=== PATIENT | female | born 1955 | race Caucasian/White ===

== ENCOUNTER 2023-06-21 12:39 | Outpatient (REF) | payer OTHER, MEDICARE, SELFPAY ==
--- NOTE | ~2023-06-21 | XR_ITS ---
EXAMINATION: XR KNEE, LEFT CLINICAL INFORMATION: Left knee pain COMPARISON: None available. TECHNIQUE: Three views of the left knee. FINDINGS: Mineralization is normal. There is no fracture or dislocation. There is mild joint space narrowing in the medial compartment with subchondral sclerosis and irregularity of the tibial articular surface. The other joint spaces are intact. No soft tissue calcifications are seen. There is evidence of a small joint effusion. XR/XR knee LT 3V IMPRESSION: Mild joint space narrowing and degenerative change in the medial compartment. Small joint effusion.
== END 2023-06-21 12:40 | disposition home or self-care (01) ==
LOC: HO.HOSX 12:39
PROVIDERS: PCP Internal Medicine; Visit Provider Orthopaedic Surgery
DX: M17.12 Unilateral primary osteoarthritis, left knee (principal)
CPT/HCPCS: 73562

== ENCOUNTER 2023-06-21 12:39 | Outpatient (AMB) | payer OTHER, MEDICARE, SELFPAY ==
--- NOTE | 2023-06-21 12:48 | A.OFFVIS_ITS ---
Intake Intake Visit Reasons: discuss gel injection LT knee Intake Note: Filomena is a 68 year old female who presents today as new patient for a evaluation for her left knee pain. The patient describes her left knee pain as sharp in nature. Her pain has gotten worse over the last few years in spite of continued non operative treatments. She has had multiple cortisone injections. The most recent cortisone injection gave her no relief. She has not had a viscosupplementation injection. She has tried Tylenol and anti-inflammatory medicines which gave her minimal relief. She has also done physical therapy for 12 weeks over the last 6 months which aggravated her pain. The patient wishes to hold off on surgery for as long as possible. Allergies No Known Allergies Allergy (Verified 06/21/23 13:00) Medication List - Last Reconciled 06/21/23 by Glenn Gaines MD metformin ER 500 mg PO BID naproxen 500 mg PO BID omeprazole 20 mg PO DAILY Physical Exam Const Other: Well-nourished well-developed very friendly female awake alert and oriented x3 in no acute distress Extrem Other: Bilateral lower extremity examination shows good capillary refill, no skin lesi ons noted, normal sensation light touch Left knee examination shows a minimal effusion, palpable crepitus with range of motion, pain with range of motion, range of motion from -3 degrees to 115 degree s, no instability Results Reviewed Results Reviewed: X-rays of the patient's left knee show moderate joint space narrowing most significant in the medial compartment, subchondral sclerosis, no acute bony abnormalities Assessment & Plan Assessment & Plan (1) Arthritis of left knee: Code(s): M17.12 - Unilateral primary osteoarthritis, left knee Plan Mrs. Fernández presents with left knee pain due to degenerative joint disease. I had a lengthy discussion with the patient regarding the treatment options. She wishes to hold off on surgery for as long as possible. I agree with this plan. She has not gotten good relief from her recent cortisone injections. Thus, I will see whether not her insurance company will cover a viscosupplementation injection. I will see her back once the injection is available. If she fails continued non operative treatments we will further discuss the risks and benefits of surgical intervention. Feel free to call me at any time should questions regarding her orthopedic management arise. I spent 22 minutes in reviewing the patient's records and imaging studies, seeing the patient and documenting in the medical record. Orders: Orders XR knee LT 3V Today M25.562 - Pain in left knee Coding Level of Care Code Est Pt Level 2 (64385) Diagnoses Arthritis of left knee M17.12
== END 2023-06-21 13:38 | disposition home or self-care (01) ==
PROVIDERS: PCP Internal Medicine; Visit Provider Orthopaedic Surgery
DX: M17.12 Unilateral primary osteoarthritis, left knee (principal)
CPT/HCPCS: 99212

== ENCOUNTER 2023-07-05 08:06 | Outpatient (AMB) | payer OTHER, MEDICARE, SELFPAY ==
--- NOTE | 2023-07-05 08:13 | MHC.OFFVIS ---
Intake Intake Visit Reasons: OV - Left knee Euflexxa Gel Injection #1 Intake Note: Filomena is a 68 year old female who presents today with complaints of progressively worsening left knee pain and swelling. She describes her pain as sharp and severe in nature. She has had cortisone injections in the past which gave her minimal relief. She has also done physical therapy which aggravated her pain. She has tried Tylenol and anti-inflammatory medicines which gave her minimal relief. She would like to hold off on left total knee replacement surgery for as long as possible. Allergies No Known Allergies Allergy (Verified 07/05/23 08:13) Medication List - Last Reconciled 07/05/23 by Glenn Gaines MD metformin ER 500 mg PO BID naproxen 500 mg PO BID omeprazole 20 mg PO DAILY Physical Exam Const Other: Well-nourished well-developed very friendly female awake alert and oriented x3 in no acute distress Extrem Other: Bilateral lower extremity examination shows good capillary refill, no skin lesions noted, normal sensation light touch Left knee examination shows a moderate effusion, palpable crepitus with range of motion, pain with range of motion, range of motion from -3 degrees to 115 degrees, no instability Office Procedures Joint Injection/Drain Joint Injection/Drain Primary Site: left knee Prep: site was prepped using aseptic technique Injected: 20 mg of (Euflexxa) and 1% plain lidocaine Procedure: The patient tolerated the procedure well Coding 67502 - Large joint Procedure code (CPT) selection complete Results Reviewed Results Reviewed: 07/05/23 08:15 Hyaluronate Sodium [Euflexxa] 20 mg INTRAARTIC .STK-MED ONE 07/05/23 08:34 Lidocaine HCl 2 % MPF [Xylocaine 2 % MPF] 5 ml .ROUTE .STK-MED ONE X-rays of the patient's left knee show joint space narrowing, subchondral sclerosis, no acute bony abnormalities Assessment & Plan Assessment & Plan (1) Arthritis of left knee: Code(s): M17.12 - Unilateral primary osteoarthritis, left knee Plan: Ms. Fernández presents with progressively worsening left knee pain and swelling due to degenerative joint disease. I had a lengthy discussion with the patient regarding the treatment options. She wishes to hold off on left total knee replacement surgery for as long as possible. I agree with this plan. She has not gotten good relief from cortisone injections in the past. Thus, the risks and benefits of a left knee viscosupplementation injection series were discussed at length with the patient. The patient wished to proceed. She tolerated the 1st Euflexxa injection well. Prior to the injection 5 cc of clear fluid were aspirated from the patient's knee. She will continue with her activity modifications. She will follow-up as instructed next week for 2nd injection. If she fails continued non operative treatments we will further discuss the risks and benefits of surgical intervention. Feel free to call me at any time should questions regarding her orthopedic management arise. I spent 22 minutes in reviewing the patient's records and imaging studies, seeing the patient and documenting in the medical record. Orders: Orders AMB Joint Injection/Aspiration Today M17.12 - Unilateral primary osteoarthritis, left knee Coding Level of Care Code Est Pt Level 2 (79446) Diagnoses Arthritis of left knee M17.12 CPT Codes Coding - 18658 Large joint: 70934 - Large joint ([id number])
== END 2023-07-05 08:49 | disposition home or self-care (01) ==
PROVIDERS: PCP Internal Medicine; Visit Provider Orthopaedic Surgery
DX: M17.12 Unilateral primary osteoarthritis, left knee (principal)
CPT/HCPCS: 20610; 99213

== ENCOUNTER → 2023-07-05 08:06 | Outpatient (BNVA) | payer OTHER, MEDICARE, SELFPAY | PROVIDERS: PCP Internal Medicine; Visit Provider Orthopaedic Surgery | DX: M17.12 Unilateral primary osteoarthritis, left knee (principal) | CPT/HCPCS: 20610; J7323 ==

== ENCOUNTER 2023-07-12 10:41 | Outpatient (AMB) | payer OTHER, SELFPAY ==
--- NOTE | 2023-07-12 10:47 | MHC.OFFVIS ---
Intake Intake Visit Reasons: OV - Left knee Euflexxa Gel Injection #2 Intake Note: Filomena is a 68 year old female who presents today for a Left Knee Euflexxa Injection #2. She states that she got mild relief from her 1st injection. She denies any fevers or chills. She has taken Naprosyn which gives her minimal relief. Allergies No Known Allergies Allergy (Verified 07/12/23 10:48) Medication List - Last Reconciled 07/12/23 by Gelnn Gaines MD celecoxib (Celebrex) 200 mg PO DAILY PRN metformin ER 500 mg PO BID naproxen 500 mg PO BID omeprazole 20 mg PO DAILY Physical Exam Extrem Other: Left knee examination shows a mild effusion, palpable crepitus with range of motion, pain with range of motion, no instability Results Reviewed Results Reviewed: 07/12/23 10:41 Lidocaine HCl 2 % MPF [Xylocaine 2 % MPF] 5 ml .ROUTE .STK-MED ONE 07/12/23 10:42 Hyaluronate Sodium [Euflexxa] 20 mg INTRAARTIC .STK-MED ONE X-rays of the patient's left knee show joint space narrowing, subchondral sclerosis, no acute bony abnormalities Assessment & Plan Assessment & Plan (1) Arthritis of left knee: Code(s): M17.12 - Unilateral primary osteoarthritis, left knee Plan Ms. Fernández presents with left knee pain due to degenerative joint disease. The risks and benefits of a 2nd Euflexxa injection were discussed at length with the patient. The patient wished to proceed. Patient tolerated the injection well. Prior to the Euflexxa injection I did aspirate 5 cc of clear fluid from her left knee. I also gave her a prescription for Celebrex which she can take instead of the Naprosyn. I will see her back next week as scheduled. Feel free to call me at any time should questions regarding her orthopedic management arise. I spent 22 minutes in reviewing the patient's records and imaging studies, seeing the patient and documenting in the medical record. Orders: Orders AMB Joint Injection/Aspiration Today M17.12 - Unilateral primary osteoarthritis, left knee Medications: New celecoxib (Celebrex) 200 mg PO DAILY PRN 30 caps 3RF pain Coding Level of Care Code Procedure Only Diagnoses Arthritis of left knee M17.12
== END 2023-07-12 11:15 | disposition home or self-care (01) ==
PROVIDERS: PCP Internal Medicine; Visit Provider Orthopaedic Surgery
DX: M17.12 Unilateral primary osteoarthritis, left knee (principal)
CPT/HCPCS: 20610

== ENCOUNTER → 2023-07-12 10:41 | Outpatient (BNVA) | payer OTHER, MEDICARE, SELFPAY | PROVIDERS: PCP Internal Medicine; Visit Provider Orthopaedic Surgery | DX: M17.12 Unilateral primary osteoarthritis, left knee (principal) | CPT/HCPCS: 20610; J7323 ==

== ENCOUNTER 2023-07-19 11:24 | Outpatient (AMB) | payer OTHER, SELFPAY ==
--- NOTE | 2023-07-19 11:25 | A.OFFVIS_ITS ---
Intake Intake Visit Reasons: OV - Left knee Euflexxa Gel Injection #3 Intake Note: Filomena is a 68 year old female who presents today for a Left Knee Euflexxa Injection #3. Patient reports that her pain has gotten better. She states that during the day she gets some discomfort. She denies any fevers or chills. Allergies No Known Allergies Allergy (Verified 07/19/23 11:32) Medication List - Last Reconciled 07/19/23 by Glenn Gaines MD celecoxib (Celebrex) 200 mg PO DAILY PRN metformin ER 500 mg PO BID naproxen 500 mg PO BID omeprazole 20 mg PO DAILY Physical Exam Extrem Other: Left knee examination shows a mild effusion, palpable crepitus with range of motion, pain with range of motion, no instability Office Procedures Joint Injection/Drain Joint Injection/Drain Primary Site: left knee Prep: site was prepped using aseptic technique Injected: 20 mg of (Euflexxa) and 1% plain lidocaine Procedure: The patient tolerated the procedure well Coding - Large joint Procedure code (CPT) selection complete Results Reviewed Results Reviewed: 07/19/23 11:22 Hyaluronate Sodium [Euflexxa] 20 mg INTRAARTIC .STK-MED ONE Lidocaine HCl 2 % MPF [Xylocaine 2 % MPF] 5 ml .ROUTE .STK-MED ONE Assessment & Plan Assessment & Plan (1) Arthritis of left knee: Code(s): M17.12 - Unilateral primary osteoarthritis, left knee Plan: Ms. Fernández presents for follow-up of her left knee pain. The risks and benefits of he 3rd Euflexxa injection were discussed at length with the patient. The patient wished to proceed. Patient tolerated the injection well. 4 cc of clear fluid were aspirated from her knee prior to the injection. She will continue with activities as tolerated. She will follow up with me on an as- needed basis should her symptoms not plateau at an acceptable level over the next few months. Feel free to call me at any time should questions regarding her orthopedic management arise. I spent 22 minutes in reviewing the patient's records and imaging studies, seeing the patient and documenting in the medical record. Orders: Orders AMB Joint Injection/Aspiration Today M17.12 - Unilateral primary osteoarthritis, left knee Coding Level of Care Code Procedure Only Diagnoses Arthritis of left knee M17.12 CPT Codes Coding - 54598 Large joint: 78198 - Large joint ([id number])
== END 2023-07-19 11:41 | disposition home or self-care (01) ==
PROVIDERS: PCP Internal Medicine; Visit Provider Orthopaedic Surgery
DX: M17.12 Unilateral primary osteoarthritis, left knee (principal)
CPT/HCPCS: 20610

== ENCOUNTER → 2023-07-19 11:24 | Outpatient (BNVA) | payer OTHER, SELFPAY | PROVIDERS: PCP Internal Medicine; Visit Provider Orthopaedic Surgery | DX: M17.12 Unilateral primary osteoarthritis, left knee (principal) | CPT/HCPCS: 20610; J7323 ==

== ENCOUNTER 2023-10-25 11:05 | Outpatient (AMB) | payer OTHER, SELFPAY ==
--- NOTE | 2023-10-25 11:33 | MHC.OFFVIS ---
Intake Vital Signs 10/25/23 11:39 Height 5 ft 4 in Weight 201 lb BMI 34.5 Intake Visit Reasons: OV-Left knee-F/u Intake Note: Filomena is a 68 year old female who presents today for a follow up visit of her left knee, last euflexxa gel injection was 07/19/23. Patient reports her last injection didn't help. She reports continued moderate discomfort in her left knee. She has tried Tylenol and anti-inflammatory medicines which gave her minimal relief. She has also done physical therapy exercises which aggravated her pain. She wishes to hold off on total knee replacement surgery as. Allergies No Known Allergies Allergy (Verified 10/25/23 11:39) Medication List - Last Reconciled 10/25/23 by Glenn Gaines MD celecoxib (Celebrex) 200 mg PO DAILY PRN metformin ER 500 mg PO BID naproxen 500 mg PO BID omeprazole 20 mg PO DAILY Physical Exam Vital Signs: BMI result Body Mass Index 34.5 Const Other: Well-nourished well-developed very friendly female awake alert and oriented x3 in no acute distress Extrem Other: Bilateral lower extremity examination shows good capillary refill, no skin lesions noted, normal sensation light touch Left knee examination shows a moderate effusion, palpable crepitus with range of motion, pain with range of motion, no instability Office Procedures Joint Injection/Drain Joint Injection/Drain Primary Site: left knee Injected: 40 mg of, DepoMedrol and 1% plain lidocaine Procedure: The patient tolerated the procedure well Coding 91467 - Large joint Procedure code (CPT) selection complete Results Reviewed Results Reviewed: X-rays of the patient's left knee show joint space narrowing, subchondral sclerosis, no acute bony abnormalities Assessment & Plan Assessment & Plan (1) Arthritis of left knee: Code(s): M17.12 - Unilateral primary osteoarthritis, left knee Plan Ms. Fernández presents with progressively worsening left knee pain due to degenerative joint disease. I had a lengthy discussion with the patient regarding the treatment options. She wishes to hold off on left total knee replacement surgery for as long as possible. I agree with this plan. The risks and benefits of a cortisone injection were discussed at length with the patient. The patient wished to proceed. She tolerated the injection well. Prior to the injections 7 cc of clear fluid were aspirated from the patient's left knee. She will continue with her activity modifications. She will follow up with me on an as-needed basis should her symptoms not plateau at an unacceptable level over the next few months. Feel free to call me at any time should questions regarding her orthopedic management arise. I spent 22 minutes in reviewing the patient's records and imaging studies, seeing the patient and documenting in the medical record. Orders: Orders AMB Joint Injection/Aspiration Today M17.12 - Unilateral primary osteoarthritis, left knee Coding Level of Care Code Est Pt Level 2 (52003) Diagnoses Arthritis of left knee M17.12 CPT Codes Coding - 71687 Large joint: 79962 - Large joint ([id number])
[2023-10-25 11:39] VITALS: BMI 34.5
== END 2023-10-25 11:58 | disposition home or self-care (01) ==
PROVIDERS: PCP Internal Medicine; Visit Provider Orthopaedic Surgery
DX: M17.12 Unilateral primary osteoarthritis, left knee (principal)
CPT/HCPCS: 20610; 99213

== ENCOUNTER → 2023-10-25 11:05 | Outpatient (BNVA) | payer OTHER, MEDICARE, SELFPAY | PROVIDERS: PCP Internal Medicine; Visit Provider Orthopaedic Surgery | DX: M17.12 Unilateral primary osteoarthritis, left knee (principal) | CPT/HCPCS: 20610; 99212; J1020 ==

== ENCOUNTER 2024-01-24 11:26 | Outpatient (AMB) | payer MEDICARE, OTHER, SELFPAY ==
--- NOTE | 2024-01-24 11:29 | A.OFFVIS_ITS ---
Intake Vital Signs 01/24/24 11:35 Height 5 ft 4 in Weight 201 lb BMI 34.5 Intake Visit Reasons: left knee arthritis Intake Note: Filomena is a 68 year old female who presents with complaints of progressively worsening left knee pain. She describes her pain as sharp and severe in nature, 10. Her pain has gotten worse over the last few years in spite of continued non operative treatments. She has tried Tylenol and anti-inflammatory medicines which gave her minimal relief. She has also had multiple injections. The most recent injection gave her no relief. She has done physical therapy exercises which aggravated her pain. The patient has difficulty walking even short distances because of her pain. At this point her left knee pain is interfering with her activities of daily living and her ability to sleep well through the night. Allergies No Known Allergies Allergy (Verified 01/24/24 11:34) Medication List - Last Reconciled 01/24/24 by Glenn Gaines MD celecoxib (Celebrex) 200 mg PO DAILY PRN metformin ER 500 mg PO BID naproxen 500 mg PO BID omeprazole 20 mg PO DAILY Physical Exam Vital Signs: BMI result Body Mass Index 34.5 Const Other: Well-nourished well-developed very friendly female awake alert and oriented x3 in no acute distress Extrem Other: Bilateral lower extremity examination shows good capillary refill, no skin lesions noted, normal sensation light touch Left knee examination shows a minimal effusion, palpable crepitus with range of motion, pain with range of motion, range of motion from -3 degrees to 115 degrees, no instability Results Reviewed Results Reviewed: X-rays of the patient's left knee show end-stage degenerative joint disease with grade 4 [id number] arthritis, subchondral sclerosis, osteophyte formation, no acute bony abnormalities Assessment & Plan Assessment & Plan (1) Arthritis of left knee: Code(s): M17.12 - Unilateral primary osteoarthritis, left knee Plan Mrs. Fernández presents with progressively worsening left knee pain due to end- stage degenerative joint disease. I had a lengthy discussion with the patient regarding the treatment options. At this point she has failed continued non operative treatments. The risks and benefits of left total knee replacement surgery were discussed at length with the patient. The patient wishes to proceed with surgery. She will be scheduled for next available date. I will see her back prior to her surgery to answer any final questions that she might have. Feel free to call me at any time should questions regarding her orthopedic management arise. I spent 22 minutes in reviewing the patient's records and imaging studies, seeing the patient and documenting in the medical record. Coding Level of Care Code Est Pt Level 2 (13082) Diagnoses Arthritis of left knee M17.12
[2024-01-24 11:35] VITALS: BMI 34.5
== END 2024-01-24 12:03 | disposition home or self-care (01) ==
PROVIDERS: PCP Internal Medicine; Visit Provider Orthopaedic Surgery
DX: M17.12 Unilateral primary osteoarthritis, left knee (principal)
CPT/HCPCS: 99214

== ENCOUNTER → 2024-01-24 11:26 | Outpatient (BNVA) | payer OTHER, MEDICARE, SELFPAY | PROVIDERS: PCP Internal Medicine; Visit Provider Orthopaedic Surgery | DX: M17.12 Unilateral primary osteoarthritis, left knee (principal) | CPT/HCPCS: 99212 ==

== ENCOUNTER → 2024-06-18 09:07 | Outpatient (BNVA) | payer OTHER, MEDICARE, SELFPAY | PROVIDERS: PCP Internal Medicine | DX: Z01.818 Encounter for other preprocedural examination (principal) ==

== ENCOUNTER 2024-07-18 07:48 | Outpatient (AMB) | payer OTHER, SELFPAY ==
--- NOTE | 2024-07-18 08:00 | A.OFFVIS_ITS ---
Intake Visit Reasons: L TKA w/ 07/22/24 Intake Note: Filomena is a 68 year old female who presents with complaints of progressively worsening left knee pain. The patient describes her left knee pain as sharp in nature, 10/10. Her pain has gotten worse over the last few years in spite of continued non operative treatments. She has had multiple injections given into her left knee in the past. The most recent injection gave her minimal relief. She has tried Tylenol and anti-inflammatory medicines which gave her minimal relief. She has also done physical therapy for 12 weeks over the last 6 months which aggravated her pain. The patient has difficulty walking even short distances because of her pain. At this point her left knee pain is interfering with her activities of daily living and her ability to sleep well through the night. Allergies No Known Allergies Allergy (Verified 07/11/24 10:29) Medication List - Last Reconciled 07/18/24 by Glenn Gaines MD aspirin 81 mg PO DAILY lisinopril 10 mg PO DAILY magnesium oxide 200 mg PO DAILY metformin ER 500 mg PO BID bsyohuhqjsyw-cgjaznji-xmraxs (Multivitamin 50 Plus tablet) 1 tab PO DAILY omeprazole 20 mg PO DAILY pravastatin 40 mg PO DAILY semaglutide (Ozempic) 1 mg subcut QWEEK vitamin B complex 1 cap PO DAILY vitamin D3-vitamin K2 (MK4) 1,000-100 unit-mcg 1 tab PO DAILY walker Folding front wheeled walker zolpidem 5 mg PO BEDTIME PRN PFSH Medical History Arthritis GERD (gastroesophageal reflux disease) Nocturia Insomnia Subarachnoid hemorrhage Venous insufficiency of both lower extremities Cold sore Periumbilical hernia HTN (hypertension) Neuropathy Diabetes Radiculitis, cervical Hyperlipidemia PPD positive Depression Carpal tunnel syndrome Obesity Surgical History Hx of tubal ligation History of esophagogastroduodenoscopy (EGD) History of bilateral carpal tunnel release Hx of foot surgery H/O colonoscopy History of bunionectomy Social History Are you a primary medicare coordinator to a significant other at home: No Do you presently have visiting nurse or other home services: No (has used [facility] in the past) Patient Tobacco Use Status: Former Tobacco user Physical Exam Const Other: Well-nourished well-developed very friendly female awake alert and oriented x3 in no acute distress Extrem Other: Bilateral lower extremity examination shows good capillary refill, no skin les ions noted, normal sensation light touch Left knee examination shows a minimal effusion, palpable crepitus with range of motion, pain with range of motion, range of motion from -3 degrees to 115 degre es, no instability Results Reviewed Results Reviewed: X-rays of the patient's left knee show end-stage degenerative joint disease with grade 4 cvdo-td-lmal arthritis, subchondral sclerosis, osteophyte formation, no acute bony abnormalities Assessment & Plan Assessment & Plan (1) Arthritis of left knee: Code(s): M17.12 - Unilateral primary osteoarthritis, left knee Category: Medical Plan Mrs. Fernández presents with progressively worsening left knee pain due to end- stage degenerative joint disease. I had a lengthy discussion with the patient regarding the treatment options. At this point she has failed continued non operative treatments. The risks and benefits of left total knee replacement surgery were discussed at length with the patient. The patient wishes to proceed with surgery. child protective services social worker will be consulted following her surgery for home physical therapy and nursing. The patient will follow-up as instructed. Feel free to call me at any time should questions regarding her orthopedic management arise. I spent 22 minutes in reviewing the patient's records and imaging studies, seeing the patient and documenting in the medical record. Coding Level of Care Code Est Pt Level 3 (35460) Complex EM visit Add On G2211 Diagnoses Arthritis of left knee M17.12
== END 2024-07-18 08:23 | disposition home or self-care (01) ==
PROVIDERS: PCP Internal Medicine; Visit Provider Orthopaedic Surgery
DX: M17.12 Unilateral primary osteoarthritis, left knee (principal)
CPT/HCPCS: 99213

== ENCOUNTER → 2024-07-18 07:48 | Outpatient (BNVA) | payer OTHER, SELFPAY | PROVIDERS: PCP Internal Medicine; Visit Provider Orthopaedic Surgery ==

== ENCOUNTER 2024-07-22 09:29 | Inpatient (IN) | payer OTHER, SELFPAY ==
[2024-07-15 12:15] VITALS: BP 169/88; PULSE 85; RESP 16; O2SAT 96; BMI 33.9
--- NOTE | 2024-07-15 12:41 | P.CONAN_ITS ---
Documented by User: Maribell Kaufman NP 07/19/24 13:14 HPI - Anesthesia Eval Consult details Narrative: 69yo F for Left Knee Replacement Total, 07/22/24 Medically optimized per PCP No recent illness No CP/SOB with minimal activity Subarachnoid hemmorhage: s/p fall ~ 2018. Resolved after ~ 2 days DM: FBS ~ 130 GERD: ppi controls Anesthesia Pre-Procedure Meds Is the patient on any of the following meds?: GLP1/DPP4 PMFSH Active Problems Active Problems: All Active Problems Arthritis of left knee (Acute) Left knee pain (Acute) Past Medical History Medical History Arthritis GERD (gastroesophageal reflux disease) Nocturia Insomnia Subarachnoid hemorrhage Venous insufficiency of both lower extremities Cold sore Periumbilical hernia HTN (hypertension) Neuropathy Diabetes Radiculitis, cervical Hyperlipidemia PPD positive Depression Carpal tunnel syndrome Obesity Family History Family history of problems with anesthesia: No Surgical History Surgical History Hx of tubal ligation History of esophagogastroduodenoscopy (EGD) History of bilateral carpal tunnel release Hx of foot surgery H/O colonoscopy History of bunionectomy History of Problems with Anesthesia: No Social History Social History Are you a primary direct care supervisor to a significant other at home: No Do you presently have visiting nurse or other home services: No (has used [employer] agency in the past) Patient Tobacco Use Status: Former Tobacco user Meds Allergies Allergy/AdvReac Type Severity Reaction Status Date / Time No Known Allergies Allergy Verified 07/22/24 06:18 Home Medications ?Medication ?Instructions ?Recorded ?Confirmed ?Last Taken ?Type metformin 500 mg tablet,extended 500 mg PO BID 06/21/23 07/18/24 Unknown History release 24 hr omeprazole 20 mg capsule,delayed 20 mg PO DAILY 06/21/23 07/18/24 Unknown History release aspirin 81 mg capsule 81 mg PO DAILY 06/18/24 07/18/24 07/15/24 History lisinopril 10 mg tablet 10 mg PO DAILY 06/18/24 07/18/24 Unknown History pravastatin 40 mg tablet 40 mg PO DAILY 06/18/24 07/18/24 Unknown History semaglutide 1 mg/dose (4 mg/3 mL) 1 mg subcut QWEEK 06/18/24 07/18/24 07/14/24 History subcutaneous pen injector (Ozempic) cholecalciferol (vit D3) 1,000 1 tab PO DAILY 07/15/24 07/18/24 Unknown History unit-vitamin K2 (MK4) 100 mcg tablet magnesium oxide 200 mg PO DAILY 07/15/24 07/18/24 Unknown History jwknucfmhtsa-npakedkp-dnutng 1 tab PO DAILY 07/15/24 07/18/24 Unknown History tablet (Multivitamin 50 Plus tablet) vitamin B complex 1 cap PO DAILY 07/15/24 07/18/24 Unknown History zolpidem 5 mg tablet 5 mg PO BEDTIME PRN Insomnia 07/15/24 07/18/24 Unknown History Exam Height,Weight and Vital Signs: Height 5 ft 5 in Weight 92.533 kg Last Vital Signs Pulse 85 07/15/24 12:15 Resp 16 07/15/24 12:15 BP 169/88 H 07/15/24 12:15 Pulse Ox 96 07/15/24 12:15 O2 Del Method Room Air 07/15/24 12:15 Pertinent Lab Results Pertinent Lab Results: BMP and CBC 06/2024 from outside facility WNL Narrative Narrative: EKG 06/2024 per clearance note: NSR with PVCs Airway Mallampati Class: II TM Dist: >3cm Neck ROM: Full Loose/Missing/Broken Teeth: No (Implants) Heart: RRR Lungs: CTAB Assessment and Plan Assessment Anesthesia Assessment: Anesthesia Plan Discussed and PAT Visit Final Anesthetic Review Family History of Problems with Anesthesia: No History of Problems with Anesthesia: No Documented by User: Trista Miranda MD 07/22/24 08:23 [facility] Past Medical History Medical History Arthritis GERD (gastroesophageal reflux disease) Nocturia Insomnia Subarachnoid hemorrhage Venous insufficiency of both lower extremities Cold sore Periumbilical hernia HTN (hypertension) Neuropathy Diabetes Radiculitis, cervical Hyperlipidemia PPD positive Depression Carpal tunnel syndrome Obesity Surgical History Surgical History Hx of tubal ligation History of esophagogastroduodenoscopy (EGD) History of bilateral carpal tunnel release Hx of foot surgery H/O colonoscopy History of bunionectomy Social History Social History Are you a primary direct care supervisor to a significant other at home: No Do you presently have visiting nurse or other home services: No (has used [email or web address] agency in the past) Patient Tobacco Use Status: Former Tobacco user Meds Allergies Allergy/AdvReac Type Severity Reaction Status Date / Time No Known Allergies Allergy Verified 07/22/24 06:18 Home Medications ?Medication ?Instructions ?Recorded ?Confirmed ?Last Taken ?Type metformin 500 mg tablet,extended 500 mg PO BID 06/21/23 07/18/24 Unknown History release 24 hr omeprazole 20 mg capsule,delayed 20 mg PO DAILY 06/21/23 07/18/24 Unknown History release aspirin 81 mg capsule 81 mg PO DAILY 06/18/24 07/18/24 07/15/24 History lisinopril 10 mg tablet 10 mg PO DAILY 06/18/24 07/18/24 Unknown History pravastatin 40 mg tablet 40 mg PO DAILY 06/18/24 07/18/24 Unknown History semaglutide 1 mg/dose (4 mg/3 mL) 1 mg subcut QWEEK 06/18/24 07/18/24 07/14/24 History subcutaneous pen injector (Ozempic) cholecalciferol (vit D3) 1,000 1 tab PO DAILY 07/15/24 07/18/24 Unknown History unit-vitamin K2 (MK4) 100 mcg tablet magnesium oxide 200 mg PO DAILY 07/15/24 07/18/24 Unknown History ulewdchijleq-kzombgfm-rxilue 1 tab PO DAILY 07/15/24 07/18/24 Unknown History tablet (Multivitamin 50 Plus tablet) vitamin B complex 1 cap PO DAILY 07/15/24 07/18/24 Unknown History zolpidem 5 mg tablet 5 mg PO BEDTIME PRN Insomnia 07/15/24 07/18/24 Unknown History Assessment and Plan Final Anesthetic Review NPO: Yes ASA Class: III Final Preanesthetic Review: No Changes in Pt Med Stat, Meds/Allgs Chart Reviewed, Consent Obtained/Reviewed and Anes Risks/Benef Reviewed Patient Risk: Intermediate Procedure Risk: Intermediate Anesthetic Plan Anesthetic Plan: Spinal and Regional Block Disposition: Standard PACU
[2024-07-15 14:47] LABS: MRSA Nasal PCR NEGATIVE (Negative); SA Nasal PCR NEGATIVE (Negative)
[2024-07-22] VITALS (11 sets, daily range): BP systolic 93–172; BP diastolic 48–83; PULSE 60–80; RESP 16–18; TEMP 36.1–36.9; O2SAT 96–100; BMI 33.9
[2024-07-22] MEDS: vancomycin HCL 1,500 MG in 0.9 % Sodium Chloride 500 ML 333.33 MG IV ×2 (07:24→18:08)
[2024-07-22] MEDS: Lactated Ringers 1,000 ML 100 ML IVCONT ×3 (07:25→23:18)
--- NOTE | 2024-07-22 07:47 | PC.NURSE ---
Patient went into the OR with her glasses. AV RN aware to bring them out to PACU post op.
[2024-07-22 07:56] LABS: Glucose, Whole Blood 131 mg/dL (60-115)
--- NOTE | 2024-07-22 10:47 | P.BOP_ITS ---
Brief Operative Note Date of Service: 07/22/24 Pre-op diagnosis: Left knee degenerative joint disease Post-op diagnosis: same Procedure: Left total knee arthroplasty Implants: Clare Triathlon cemented posterior stabilized total knee arthroplasty with a femoral component size 3 left, tibial component size 3, polyethylene liner size 3 with 9 mm of thickness, a symmetric patellar component size 29 with 8 mm of thickness Surgeon: Glenn Gaines MD Anesthesia: regional and spinal Was an Stationary Engineer Apprentice used for this Procedure?: No Stationary Engineer Apprentice: Kamilah Serrato Estimated blood loss (mL): 200 Pathology: other (Bony fragments from the left femur, tibia and patella) Condition: stable Disposition: PACU
--- NOTE | 2024-07-22 10:48 | P.OP_ITS ---
Operative Note Operative Note Date of Service: 07/22/24 Narrative: After the patient was identified as Dana Fernández and her left knee was initialed by myself the patient was brought to the holding area where a left leg nerve block was performed by the anesthesiologist in routine fashion. The patient was then brought to the operating room where conscious sedation and spinal anesthesia were performed by the anesthesiologist in routine fashion. Because of the patient's diabetes she was given both IV Ancef and IV vancomycin preoperatively for infection prophylaxis. The patient's left lower extremity was prepped and draped in sterile fashion. A formal time-out was completed. The patient's left knee was placed onto a small bump to produce 30? of knee flexion during exposure. A #10 scalpel blade was used to make a midline incision extending 1 handbreadth proximal and distal to the patella. A second #10 scalpel blade was used to dissect the subcutaneous tissues down to the extensor mechanism. The subcutaneous flaps were maintained as thick as possible. A medial parapatellar arthrotomy was then performed using a #10 scalpel blade. The arthrotomy was begun just medial to the patellar tendon. The arthrotomy was continued 1 cm medial to the patella and then 5 mm into the medial aspect of the quadriceps tendon. The infrapatellar fat pad was partially excised to help with exposure. The soft tissue retinaculum was raised one-half of the way around the medial aspect of the proximal tibia. The patella was everted and the knee was flexed to 90?. There was no injury to the patellar tendon or its insertion onto the tibial tubercle. A drill bit was introduced i nto the distal aspect of the femur with a starting point 1 cm anterior to the origin of the posterior cruciate ligament. The intramedullary alignment michael was put into place. The distal alignment guide was set for a 5 degree valgus cut. The distal cutting block was put into place and was held with 4 pins. The intramedullary alignment michael was removed. Soft tissues were retracted in the distal femoral cut was made using a sagittal saw. The distal aspect of the femur measured to be a size 3 left component. Two drill holes were placed into the distal aspect of the femur marking 3? of external rotation. The distal cutting block was impacted into place and was held with 2 pins. Soft tissues were retracted and the 4 distal femoral cuts were made using a sagittal saw. Final notching and drilling of the distal aspect of the femur were performed in routine fashion. The trial femoral component was impacted into place. The knee was taken through a full range of motion. The patella tracked well. The patella was everted and the knee was flexed to 90?. The trial component was removed and our attention was directed to the proximal tibia. The medial and lateral menisci were removed using a #10 scalpel blade. A small rim of the medial meniscus was left intact to help prevent injury to the medial collateral ligament. A drill bit was then introduced into the proximal tibia with a starting point midway from medial to lateral and one-third of the way posteriorly. The intramedullary alignment michael was put into place. The proximal tibial cutting guide was placed over the alignment michael in line with the 2nd toe. The guide was held in place using 3 pins. The intramedullary alignment michael was removed. Soft tissues were retracted and the proximal tibial cut was made using a sagittal saw. The proximal tibia measured to be a size 3 component. The tibial tray was put into place with a 9 mm liner. The femoral component was impacted into place. The knee was taken through a full range of motion. There was full flexion and full extension. There was no instability with varus or valgus stress testing with the knee in flexion or extension. The patella tracked well with no medially directed force. The rotation of the tibial tray was marked using electrocautery with the knee in extension. The patella was everted and the knee was flexed to 90?. All trial components were removed. The tibial tray was placed onto the proximal tibia in line with the electrocautery jerry. The tray was held in place using 3 pins. Final broaching of the proximal tibia was performed in routine fashion. The trial liner and trial femoral component were put into place. The knee was brought into extension and our attention was directed to the patella. The patella measured 25 mm in thickness. The patellar resection guide was set for a 10 mm resection. Soft tissues were retracted and the patella cut was made using a sagittal saw. The remaining patella measured 15 mm in thickness. The undersurface of the patella was measured to be a size 29 symmetric component. Three drill holes were placed into the undersurface of the patella in routine fashion. The trial component was put into place. The knee was taken through a full range of motion. The patella tracked well. The patella was everted and the knee was flexed to 90?. All trial components were removed. The knee was once again brought into extension and placed onto a small bump. The knee joint was irrigated with copious amounts of normal saline solution via pulse lavage while the cement was mixed. The patella was everted and the knee was flexed to 90?. A small amount of cement was placed along the posterior aspects of the tibial and femoral components. Cement was then pressurized into the proximal tibia. The tibial component was impacted into place. Any excess cement was removed. The polyethylene liner was then impacted into place. Cement was then pressurized into the distal aspect of the femur. A small amount of cement was placed into the intramedullary canal to help reduce bleeding. The femoral component was impacted into place. Any excess cement was removed. The knee was then brought into extension. Cement was pressurized into the undersurface of the patella. The patellar component was put into place and was held with a patella clamp. Any excess cement was removed. Once the cement had hardened the patellar clamp was removed. The knee was taken through a full range of motion. There was full flexion and extension. There was no instability with varus or valgus stress testing with the knee in flexion or extension. The patella tracked well with no medially directed force. The knee joint was irrigated with copious amounts of normal saline solution via pulse lavage. Any significant bleeding vessels were coagulated. The patient's left knee was placed onto a small bump. The arthrotomy was closed with #2 Ethibond opqzso-ky-llqpg interrupted suture as well as #1 Vicryl yqdmkf-ka-mtyjb interrupted suture. The wound was once again irrigated. The subcutaneous tissues were closed with 0 Vicryl and 2-0 Vicryl interrupted sutures. The skin was closed with skin bc. Dry sterile dressing and Christopher bandages were placed over the patient's left knee. The patient was awake and alert. The patient was transferred to the recovery room in stable condition.
--- NOTE | 2024-07-22 11:36 | PHA.MEDREC ---
Pharmacy Consult ? Medication Reconciliation Pharmacy has reviewed the medication reconciliation completed by nursing.
--- NOTE | 2024-07-22 12:40 | P.CONHOSP_ITS ---
History of Present Illness Data of Consult Service Date: 07/22/24 Primary Care Provider: Alex Marquez MD HPI Reason for consult: Medical management Patient is a 68-year-old female with a PMH significant for HTN, HLD, erl-grpzvsa-nlzneldzd type 2 diabetes, and GERD who was admitted to the hospital under orthopedic services for left TKA. POD0. Hospitalist consult for medical management. Patient has recently been moved to her room from the PACU. Reports she feels fine from the waist up but cannot feel anything below the waist or move her lower extremities. Denies any pain. No shortness a breath or diffic ulty breathing. Denies chest pain/pressure, palpitations. No fever, chills, nausea, vomiting, abdominal pain. Denies any PMH of CVA, CAD, or IA. reports he is on an aspirin due to her age and diabetes. Review of Systems Review of Systems: Unable to feel anything below waist or move lower extremities Otherwise has no acute medical complaints Denies any musculoskeletal pain No shortness of breath or difficulty breathing Denies chest pain/pressure, palpitations No fever, chills, nausea, vomiting, abdominal pain PMFSH Medical History Arthritis GERD (gastroesophageal reflux disease) Nocturia Insomnia Subarachnoid hemorrhage Venous insufficiency of both lower extremities Cold sore Periumbilical hernia HTN (hypertension) Neuropathy Diabetes Radiculitis, cervical Hyperlipidemia PPD positive Depression Carpal tunnel syndrome Obesity Surgical History Hx of tubal ligation History of esophagogastroduodenoscopy (EGD) History of bilateral carpal tunnel release Hx of foot surgery H/O colonoscopy History of bunionectomy Social History Household Members: Spouse Housing: House Are you a primary transitional care liaison to a significant other at home: No Do you presently have visiting nurse or other home services: No Patient Tobacco Use Status: Never used Tobacco Use of substances other than those prescribed or required for medical reasons: No Have you been hit, kicked, punched, or otherwise hurt by someone within the past year? If so, by whom?: No Do you feel safe in your current relationship?: Yes Is there a partner from a previous relationship who is making you feel unsafe now?: No Are you made to feel afraid or neglected: No Are you DNR?: No Advance Directives: No Advance Directives Information Provided: No Advance Directives on File: No Do you have a plan to hurt others: No Plan Recently lost weight without trying: No How much weight loss: Not applicable Eating poorly because of decreased appetite: No Nutrition screen score: 0 Nutrition Risks: No Nutritional Risk Patient : No : No Poor oral hygiene: No Meds Allergies Allergy/AdvReac Type Severity Reaction Status Date / Time No Known Allergies Allergy Verified 07/22/24 06:18 Active Medications: Current Medications Acetaminophen (Acetaminophen 325 Mg Tablet) 650 mg PO Q6H PRN PRN Reason: Pain, Mild (Pain Scale 1-3), fever or headache Aspirin (Aspirin 81 Mg Tab.Chew) 81 mg PO BID [facility] Celecoxib (Celecoxib 200 Mg Capsule) 200 mg PO BID [facility] Docusate Sodium (Docusate Sodium 100 Mg Capsule) 100 mg PO BID [facility] Fentanyl (Fentanyl Citrate/Pf 100 Mcg/2 Ml Vial) 25 mcg IVPUSH Q5M PRN PRN Reason: Pain, Moderate to Severe (Pain Scale 4-10) Stop: 07/22/24 14:26 Gabapentin (Gabapentin 100 Mg Capsule) 100 mg PO BEDTIME [facility] Hydromorphone HCl (Hydromorphone Hcl 0.5 Mg/0.5 Ml Syringe) 0.25 mg IVPUSH Q4H PRN; Protocol PRN Reason: Pain, Moderate(Pain Scale 4-6) Hydromorphone HCl (Hydromorphone Hcl 0.5 Mg/0.5 Ml Syringe) 0.5 mg IVPUSH Q4H PRN; Protocol PRN Reason: Pain, Severe (Pain Scale 7-10) Cefazolin Sodium/Dextrose (Ancef) 2 gm in 50 mls @ 100 mls/hr IV Q8H [facility] Stop: 07/23/24 00:01 Vancomycin HCl 1,500 mg/ (Sodium Chloride) 500 mls @ 333.333 mls/hr IV POSTOP ONE Stop: 07/22/24 20:29 Lactated Ringer's (Lr) 1,000 mls @ 100 mls/hr IVCONT .Q10H [facility] Lisinopril (Lisinopril 10 Mg Tablet) 10 mg PO DAILY [facility]; Protocol Magnesium Hydroxide (Milk Of Magnesia 30 Ml Oral.Susp) 30 ml PO DAILY PRN PRN Reason: Constipation Magnesium Oxide (Magnesium Oxide 400 Mg Tablet) 200 mg PO DAILY [facility] Melatonin (Melatonin 3 Mg Tablet) 6 mg PO BEDTIME PRN PRN Reason: Insomnia Metformin HCl (Metformin Hcl Er 500 Mg Tab.Er.24h) 500 mg PO BID [facility] Methocarbamol (Methocarbamol 500 Mg Tablet) 500 mg PO TID [facility] Multivitamins/Vitamin C (Multivitamin Tablet) 1 tab PO DAILY [facility] Naloxone HCl (Naloxone Hcl 0.4 Mg/Ml Vial) 0.04 mg IVPUSH Q5M PRN PRN Reason: Excessive sedation or RR < 8 Non-Formulary Medication (Semaglutide [Ozempic]) 1 mg SUBCUT QWEEK [facility] Non-Formulary Medication (Vitamin D3-Vitamin K2 (Mk4)) 1 tab PO DAILY [facility] Omeprazole (Omeprazole 20 Mg Capsule.Dr) 20 mg PO DAILY@0630 [facility] Ondansetron HCl (Ondansetron Hcl 4 Mg/2 Ml Vial) 4 mg IVPUSH ONCE PRN PRN Reason: Nausea and Vomiting Stop: 07/22/24 14:26 Ondansetron HCl (Ondansetron Hcl 4 Mg/2 Ml Vial) 4 mg IVPUSH Q8H PRN PRN Reason: Nausea and Vomiting Oxycodone HCl (Oxycodone Hcl Immed Release 5 Mg Tablet) 5 mg PO ONCE PRN PRN Reason: Pain, Moderate(Pain Scale 4-6) if no IV Access Stop: 07/22/24 14:26 Oxycodone HCl (Oxycodone Hcl Immed Release 5 Mg Tablet) 5 mg PO Q4H PRN PRN Reason: Pain, Mild (Pain Scale 1-3) Oxycodone HCl (Oxycodone Hcl Immed Release 5 Mg Tablet) 10 mg PO Q4H PRN PRN Reason: Pain, Moderate(Pain Scale 4-6) Oxycodone HCl (Oxycodone Hcl Er 10 Mg Tab.Er.12h) 10 mg PO BID [facility] Pravastatin Sodium (Pravastatin Sodium 40 Mg Tablet) 40 mg PO DAILY [facility] Sodium Chloride (0.9 % Sodium Chloride Flush 3 Ml Syringe) 3 ml IVFLUSH QSHIFT [facility] Zolpidem Tartrate (Zolpidem Tartrate 5 Mg Tablet) 5 mg PO BEDTIME PRN PRN Reason: Insomnia Home Medications ?Medication ?Instructions ?Recorded ?Confirmed ?Last Taken ?Type metformin 500 mg tablet,extended 500 mg PO BIDWM 06/21/23 07/22/24 Unknown History release 24 hr omeprazole 20 mg capsule,delayed 20 mg PO DAILY@0630 06/21/23 07/22/24 Unknown History release aspirin 81 mg capsule 81 mg PO DAILY 06/18/24 07/18/24 07/15/24 History lisinopril 10 mg tablet 10 mg PO DAILY 06/18/24 07/18/24 Unknown History pravastatin 40 mg tablet 40 mg PO DAILY 06/18/24 07/18/24 Unknown History semaglutide 1 mg/dose (4 mg/3 mL) 1 mg subcut QWEEK 06/18/24 07/18/24 07/14/24 History subcutaneous pen injector (Ozempic) cholecalciferol (vit D3) 1,000 1 tab PO DAILY 07/15/24 07/18/24 Unknown History unit-vitamin K2 (MK4) 100 mcg tablet magnesium oxide 200 mg PO DAILY 07/15/24 07/18/24 Unknown History zkhvxdieqntl-julnwhfu-kaxnat 1 tab PO DAILY 07/15/24 07/18/24 Unknown History tablet (Multivitamin 50 Plus tablet) vitamin B complex 1 cap PO DAILY 07/15/24 07/18/24 Unknown History zolpidem 5 mg tablet 5 mg PO BEDTIME PRN Insomnia 07/15/24 07/18/24 Unknown History Physical Exam Vital Signs and Narrative: Vital Signs: Last Vital Signs Temp 97.0 F 07/22/24 11:31 Pulse 63 07/22/24 11:31 Resp 16 07/22/24 11:31 BP 122/61 07/22/24 11:31 Pulse Ox 98 07/22/24 11:31 O2 Del Method Room Air 07/22/24 11:31 O2 Flow Rate 6 07/22/24 10:33 BMI result Body Mass Index 33.9 General: AOx3, no acute distress Resp: CTA bilaterally CVS: S1, S2, RRR GI: +BS, NT, no distention Skin: Warm, dry Neuro: Loss of sensation in lower extremities bilaterally. Unable to move lower extremities Extremities: No edema Psych: Appropriate affect Results Labs Labs: Laboratory Results - last 24 hr 07/22/24 06:31 POC Glucose 131 H Assessment and Plan (1) History of total knee arthroplasty: Status: Acute (2) Arthritis of left knee: Status: Acute Plan Patient is a 68-year-old female with a PMH significant for HTN, HLD, lxc-gzztvvn-dsthqlugr type 2 diabetes, and GERD who was admitted to the hospital under orthopedic services for left TKA. POD0. Hospitalist consult for medical management. Left TKA POD0 Pt reports no sensation below waist, unable to move lower extremities Denies pain Plan as per Orthopedics Nxh-wqanadn-brxxpdonb type [address] diabetes [address] on sliding scale insulin Diabetic diet Patient can resume Ozempic upon discharge HLD Continue statin HTN Continue lisinopril GERD Continue PPI Thank you for allowing us to participate in the care of this patient. Signing off at this time. Please re-consult if any acute complaints or issues arise.
[2024-07-22] MEDS: Omeprazole 20 MG CAPSULE.DR PO (12:48)
[2024-07-22] MEDS: methocarbamoL 500 MG TABLET PO ×2 (12:48→20:43)
[2024-07-22] MEDS: Pravastatin Sodium 40 MG TABLET PO (12:48)
[2024-07-22] MEDS: Celecoxib 200 MG CAPSULE PO ×2 (12:48→20:44)
[2024-07-22] MEDS: Docusate Sodium 100 MG CAPSULE PO ×2 (12:48→20:44)
[2024-07-22] MEDS: Multivitamin TABLET 1 TAB PO (12:48)
[2024-07-22] MEDS: metFORMIN HCl ER 500 MG TAB.ER.24H PO (12:48)
[2024-07-22] MEDS: lisinopriL 10 MG TABLET PO (12:48)
[2024-07-22] MEDS: Magnesium Oxide 400 MG TABLET 200 MG PO (12:48)
[2024-07-22 12:52] LABS: Glucose, Whole Blood 76 mg/dL (60-115)
[2024-07-22] MEDS: oxyCODONE HCl ER 10 MG TAB.ER.12H PO ×2 (13:19→20:43)
[2024-07-22] MEDS: HYDROmorphone HCl 0.5 MG/0.5 ML SYRINGE IVPUSH (16:51)
[2024-07-22] MEDS: ceFAZolin Sodium/Dextrose,Iso 2 GM/50 ML PIGGYBACK IV ×2 (16:51→22:27)
[2024-07-22 16:53] LABS: Glucose, Whole Blood 121 mg/dL (60-115)
[2024-07-22] MEDS: ondansetron HCL 4 MG/2 ML VIAL IVPUSH (17:30)
[2024-07-22] MEDS: Aspirin 81 MG TAB.CHEW PO (18:08)
[2024-07-22 20:11] LABS: Glucose, Whole Blood 169 mg/dL (60-115)
[2024-07-22] MEDS: Insulin Lispro 100 UNIT/ML 3 ML VIAL SUBCUT (20:42)
[2024-07-22] MEDS: Gabapentin 100 MG CAPSULE PO (20:43)
[2024-07-22] MEDS: 0.9 % Sodium Chloride Flush 3 ML SYRINGE IVFLUSH (20:45)
[2024-07-22] MEDS: Morphine Sulfate 2 MG/ML CARTRIDGE IVPUSH (23:18)
[2024-07-23 04:00] VITALS: BP 126/61; PULSE 93; RESP 16; TEMP 36.7; O2SAT 95
[2024-07-23] MEDS: Omeprazole 20 MG CAPSULE.DR PO (05:24)
[2024-07-23 05:31] LABS: MANUAL DIFF FLAG NO
[2024-07-23 05:33] LABS: Basophils Percent Auto 0.2 % (0-2); Eosinophils Percent Auto 0.1 % (0-4); Hemoglobin 11.5 g/dl (12.0-16.0); Imm Gran Abs Auto 0.02 X10*3/uL (0.00-0.03); Imm Gran Pct Auto 0.2 % (0.0-0.4); Lymphocytes Absolute Auto 1.4 X10*3/uL (1.2-4.9); Lymphocytes Percent Auto 16.7 % (20-40); Mean Corpuscular HGB Conc 32.9 g/dl (31.0-35.0); Mean Corpuscular Hemoglobin 30.2 pg (27.0-33.0); Mean Corpuscular Volume 91.9 fL (80.0-98.0); Mean Platelet Volume 9.5 fL (9.4-12.3); Monocytes Absolute Auto 0.7 X10*3/uL (0.1-1.2); Neutrophils Percent Auto 74.8 % (45-73); Platelet Count 172 X10*3/uL (160-400); Red Blood Count 3.81 X10*6/uL (4.20-5.50); Red Cell Distribution Width 12.9 % (11.0-16.0); White Blood Count 8.1 X10*3/uL (4.8-10.8)
[2024-07-23 05:58] LABS: Anion Gap 13 (12-20); Blood Urea Nitrogen 11 mg/dL (9-16); Calcium 8.7 mg/dL (8.4-10.2); Carbon Dioxide 24 mmol/L (22-29); Chloride 104 mmol/L (96-108); Creatinine Clr Calc Pharmacy 99.2; Estimated Glomerular Filt Rate > 60; Glucose Fasting 148 mg/dL (60-99); Potassium 3.9 mmol/L (3.3-5.1); Sodium 137 mmol/L (135-145)
[2024-07-23 07:28] LABS: Glucose, Whole Blood 134 mg/dL (60-115)
[2024-07-23 07:33] VITALS: BP 127/72; PULSE 97; RESP 16; TEMP 36.7; O2SAT 96
[2024-07-23] MEDS: methocarbamoL 500 MG TABLET PO ×3 (08:12→20:47)
[2024-07-23] MEDS: Pravastatin Sodium 40 MG TABLET PO (08:12)
[2024-07-23] MEDS: Magnesium Oxide 400 MG TABLET 200 MG PO (08:12)
[2024-07-23] MEDS: Docusate Sodium 100 MG CAPSULE PO (08:12)
[2024-07-23] MEDS: Aspirin 81 MG TAB.CHEW PO ×2 (08:12→20:45)
[2024-07-23] MEDS: Multivitamin TABLET 1 TAB PO (08:12)
[2024-07-23] MEDS: lisinopriL 10 MG TABLET PO (08:12)
[2024-07-23] MEDS: Celecoxib 200 MG CAPSULE PO ×2 (08:12→20:46)
[2024-07-23] MEDS: oxyCODONE HCl ER 10 MG TAB.ER.12H PO (08:13)
[2024-07-23] MEDS: Lactated Ringers 1,000 ML 100 ML IVCONT (08:19)
--- NOTE | 2024-07-23 09:02 | PM.DS ---
DS: Providers Provider Date of Service: 07/24/24 Date of admission: 07/22/24 09:29 Primary care physician: Alex Marquez MD Consults: 07/22/24 11:46 Consult to Hospitalist Routine Comment: Consulting Provider: Hospitalist Reason For Exam: Routine medical management DMII DS: Diagnosis Discharge Diagnosis (1) History of total knee arthroplasty: Status: Acute (2) Arthritis of left knee: Status: Acute DS: Summary Hospital Course Hospital Course: The patient underwent a successful left total knee arthroplasty, they were transferred to PACU and then to the floor to recover. During their stay, their vitals were stable, afebrile at 98.0. Labs were unremarkable, H/H 11.5/35.0. POD 1 they were started on Aspirin 325mg po bid for DVT ppx, they also received Physical Therapy services twice a day. Prior to discharge, their dressing was clean dry and intact, and the plan was to be discharged home with VNA services. Time Attestation Discharge Coordination Time (in mins): 30 Quality: Safe Use of Opioids Does Pt have an Active Cancer Diagnosis on the Problem List?: No Quality: Stroke Does the patient have a stroke diagnosis?: No Physical Exam Vital Signs: Vital Signs: Last Vital Signs Temp 98.0 F 07/23/24 07:33 Pulse 97 07/23/24 07:33 Resp 16 07/23/24 07:33 BP 127/72 07/23/24 07:33 Pulse Ox 96 07/23/24 07:33 O2 Del Method Room Air 07/23/24 07:33 O2 Flow Rate 6 07/22/24 10:33 BMI result Body Mass Index 33.9 Const: General: cooperative, healthy appearing and no acute distress Resp: Effort & Inspection: normal respiratory effort and able to speak in complete sentences Cardio: Rate: regular rate Peripheral pulses: Peripheral pulses 2+ throughout GI: Palpation (GI): Soft to palpation Skin: Lesions: no lesions Rashes: no rashes Extrem: Other: left knee dressing is c/d/i. Able to dorsi/plantar flex. Calf is supple and nontender. Sensation intact. Pedal pulse intact. DS: Data Data Completed and Pending Pending studies at discharge: Pending at discharge 07/22/24 08:32 Surgical [PTH] Routine Labs on day of discharge: Laboratory Results - last 24 hr 07/22/24 07/22/24 07/22/24 12:48 16:50 20:08 WBC RBC Hgb Hct MCV MCH MCHC RDW Plt Count MPV Immature Gran % (Auto) Neut % (Auto) Lymph % (Auto) [place] % (Auto) Eos % (Auto) Baso % (Auto) Lymph # (Auto) [place] # (Auto) Eos # (Auto) Baso # (Auto) Abs Immat Gran (auto) Absolute Neuts (auto) Absolute Nucleated RBC Nucleated RBC % (auto) Sodium Potassium Chloride Carbon Dioxide Anion Gap BUN Creatinine Estim Creat Clear Calc Estimated GFR POC Glucose 76 121 H 169 H Fasting Glucose Calcium 07/23/24 07/23/24 05:24 07:24 WBC 8.1 RBC 3.81 L Hgb 11.5 L Hct 35.0 L MCV 91.9 MCH 30.2 MCHC 32.9 RDW 12.9 Plt Count 172 MPV 9.5 Immature Gran % (Auto) 0.2 Neut % (Auto) 74.8 H Lymph % (Auto) 16.7 L [place] % (Auto) 8.0 Eos % (Auto) 0.1 Baso % (Auto) 0.2 Lymph # (Auto) 1.4 [place] # (Auto) 0.7 Eos # (Auto) 0.0 Baso # (Auto) 0.0 Abs Immat Gran (auto) 0.02 Absolute Neuts (auto) 6.0 Absolute Nucleated RBC 0.000 Nucleated RBC % (auto) 0.0 Sodium 137 Potassium 3.9 Chloride 104 Carbon Dioxide 24 Anion Gap 13 BUN 11 Creatinine 0.61 Estim Creat Clear Calc 99.2 Estimated GFR > 60 POC Glucose 134 H Fasting Glucose 148 H Calcium 8.7 Discharge Plan Discharge Anticipated Discharge Date/Time: 07/24/24 08:53 Patient Disposition: Home Health Service Discharge Diagnosis: s/p LTKA Referrals: Kamilah Serrato PA-C [Physician [employer] Counter Clerk] - 08/08/24 12:30 pm Discharge Medications: New methocarbamol 500 mg Tablet 500 mg PO TID 7 Days Qty: 21 0RF acetaminophen 325 mg Tablet 650 mg PO Q6H PRN (Reason: Pain, Mild (Pain Scale 1-3), fever or headache) 30 Days Qty: 240 0RF celecoxib 200 mg Capsule 200 mg PO BID 30 Days Qty: 60 0RF docusate sodium 100 mg Capsule 100 mg PO BID 30 Days Qty: 60 0RF aspirin 81 mg Tablet,Chewable 81 mg PO BID 42 Days Qty: 84 0RF gabapentin 100 mg Capsule 100 mg PO BEDTIME 7 Days Qty: 7 0RF hydromorphone 2 mg Tablet 2 mg PO Q4-5H PRN (Reason: Pain, Mild (Pain Scale 1-3)) 7 Days Qty: 42 0RF Rx Instructions: Partial Fill upon patient request. Continued (DME) walker Misc See Rx Instructions .ROUTE .MEDSUPPLY Qty: 1 0RF Rx Instructions: Folding front wheeled walker zolpidem 5 mg Tablet 5 mg PO BEDTIME PRN (Reason: Insomnia) vitamin B complex Capsule 1 cap PO DAILY Multivitamin 50 Plus Tablet 1 tab PO DAILY vitamin D3-vitamin K2 (MK4) 1,000-100 unit-mcg Tablet 1 tab PO DAILY magnesium oxide 200 mg magnesium Tablet 200 mg PO DAILY omeprazole 20 mg capsule,delayed release(DR/EC) 20 mg PO DAILY@0630 metformin 500 mg tablet extended release 24 hr 500 mg PO BIDWM pravastatin 40 mg tablet 40 mg PO DAILY lisinopril 10 mg tablet 10 mg PO DAILY Ozempic 1 mg/dose (4 mg/3 mL) pen injector 1 mg subcut QWEEK Patient Comments: takes every Monday Discontinued aspirin 81 mg capsule 81 mg PO DAILY Discharge Orders: Discharge Order (Routine); Ordered 07/24/24 Ordered By: Kamilah Serrato Diet: Advance to usual diet Activity on Discharge: Use cane or walker Stand Alone Forms: Patient Portal Discharge page Print Language: Romanian Care Plan Goals: restore fxn to the left knee Health Concerns: none Plan of Treatment: Physical Therapy for ROM 0-120, quad strength, gait training. Use walker for ambulation Limit stair climbing, No shower, No tub bath, No driving Continue anticoagulant x 6 weeks Keep Aquacel dressing clean, dry and intact. Follow up with orthopedics in 2 weeks Assessment: Stable for discharge
--- NOTE | 2024-07-23 09:03 | W.MHC.F2F ---
Service Date Service Date: 07/23/24 Encounter Date of encounter: 07/24/24 Reasons for Services Signs and symptoms assessed: s/p LTKA Pt. is considered homebound due to recent surgery. Unable to drive, poor balance, poor gait mechanics. Reason for physical therapy: home safety and mobility, therapeutic exercises, restore joint function, gait/transfer training and ADL training Homebound: Leaving the home is medically contraindicated at this time without the asist of a device and/or another person due th the listed conditions above and below. Reason homebound: unsteady gait / fall risk, leg weakness, pain with ambulation, pain with transfers, poor balance / fall risk and unable to drive Certification: Based on the above findings, I certify that this patient is confined to the home and needs intermittent [facility] care, physical therapy and/or speech therapy, or continues to need occupational therapy. The patient is under my care, and I have initiated the establishment of the plan of care. The patient will be followed by a physician who will periodically review the plan of care. Time Spent With Patient Time: Total time managing care of this patient today ____ minutes.
--- NOTE | 2024-07-23 10:25 | HO.POSTANES ---
Post Anesthesia Evaluation Post Anesthesia Evaluation Date of Service: 07/22/24 Vital Signs: Vital Signs Temp Pulse Resp BP Pulse Ox O2 Del Method 07/23/24 07:33 Room Air 07/23/24 07:33 98.0 F 97 16 127/72 96 Room Air 07/23/24 04:00 98.1 F 93 16 126/61 95 Room Air Anesthesia: Spinal Mental Status: Awake Pain Control: Satisfactory Nausea/Vomiting: None Hydration: Adequate Anesthesia-Related Issues: No Anes. Related Issues
--- NOTE | 2024-07-23 10:32 | MHC.CM.PN ---
IMM DELIVERED PT LIVES WITH [facility]. PT IS INDEPENDENT WITH MOBILITY AT BASELINE. PT DECLINES HCP AT THIS TIME DESPITE EDUCATION. PCP DR. TIKI XIAO DP: HOME WITH [facility] FOR P.T. [facility] WILL TRANSPORT HOME. CM WILL CONTINUE TO FOLLOW FOR ANY CHANGE TO DC PLAN/NEEDS.
[2024-07-23 11:34] LABS: Glucose, Whole Blood 176 mg/dL (60-115)
[2024-07-23] MEDS: Insulin Lispro 100 UNIT/ML 3 ML VIAL SUBCUT ×3 (11:59→20:48)
--- NOTE | 2024-07-23 13:16 | P.PNOP_ITS ---
Subjective Subjective Date of Service: 07/23/24 Interval history: POD 1 s/p LT TKA no overnight events resting in chair, worked with PT denies sob, cp, palpitations Physical Exam Vital Signs: Vital Signs: Last Vital Signs Temp 98.0 F 07/23/24 07:33 Pulse 97 07/23/24 07:33 Resp 16 07/23/24 07:33 BP 127/72 07/23/24 07:33 Pulse Ox 96 07/23/24 07:33 O2 Del Method Room Air 07/23/24 07:33 O2 Flow Rate 6 07/22/24 10:33 BMI result Body Mass Index 33.9 Const: General: cooperative, healthy appearing and no acute distress Resp: Effort & Inspection: normal respiratory effort and able to speak in complete sentences Cardio: Rate: regular rate Peripheral pulses: Peripheral pulses 2+ throughout GI: Palpation (GI): Soft to palpation Skin: General skin exam: no rashes or lesions noted Extrem: Other: bandage clean dry and intact. Calf supple nontender. Neurovascularly intact. Procedures Date of Service Date of Service: 07/23/24 Progress Note: A&P Assessment and plan (1) Status post total left knee replacement: Status: Acute Assessment and Plan: * Continue pain mgmnt * Begin Aspirin for dvt ppx * begin PT for LT TKA * Dispo planning-Pending PT eval, pain mgmnt Need for continued inpatient stay: PT Time Spent With Patient Time: Total time managing care of this patient today ____ minutes. Quality Stroke Does the patient have a stroke diagnosis?: No VTE Prior VTE?: No VTE Risk Level:: Surgical - very high VTE Device Contraindication: N/A - Device Ordered VTE Drug Contraindication: N/A - Med Ordered
[2024-07-23] MEDS: Acetaminophen 325 MG TABLET 650 MG PO ×2 (15:18→20:47)
[2024-07-23] MEDS: 0.9 % Sodium Chloride Flush 3 ML SYRINGE IVFLUSH ×2 (15:19→20:49)
[2024-07-23 15:34] VITALS: BP 137/68; PULSE 84; RESP 16; TEMP 36.1; O2SAT 92
[2024-07-23 16:04] LABS: Glucose, Whole Blood 152 mg/dL (60-115)
[2024-07-23 19:47] LABS: Glucose, Whole Blood 152 mg/dL (60-115)
[2024-07-23 20:00] VITALS: BP 144/68; PULSE 92; RESP 16; TEMP 36.6; O2SAT 95
[2024-07-23] MEDS: Melatonin 3 MG TABLET 6 MG PO (20:47)
[2024-07-24 03:51] VITALS: BP 122/66; PULSE 92; RESP 16; TEMP 36.7; O2SAT 92
[2024-07-24] MEDS: Omeprazole 20 MG CAPSULE.DR PO (06:02)
[2024-07-24] MEDS: Acetaminophen 325 MG TABLET 650 MG PO (06:04)
[2024-07-24 07:19] LABS: Glucose, Whole Blood 148 mg/dL (60-115)
[2024-07-24 07:20] VITALS: BP 128/72; PULSE 91; RESP 16; TEMP 36.8; O2SAT 95
[2024-07-24] MEDS: oxyCODONE HCl ER 10 MG TAB.ER.12H PO (07:22)
[2024-07-24] MEDS: Multivitamin TABLET 1 TAB PO (07:23)
[2024-07-24] MEDS: Aspirin 81 MG TAB.CHEW PO (07:23)
[2024-07-24] MEDS: Celecoxib 200 MG CAPSULE PO (07:23)
[2024-07-24] MEDS: Docusate Sodium 100 MG CAPSULE PO (07:23)
[2024-07-24] MEDS: Magnesium Oxide 400 MG TABLET 200 MG PO (07:23)
[2024-07-24] MEDS: methocarbamoL 500 MG TABLET PO (07:24)
[2024-07-24] MEDS: lisinopriL 10 MG TABLET PO (07:24)
[2024-07-24] MEDS: Pravastatin Sodium 40 MG TABLET PO (07:24)
[2024-07-24 07:26] LABS: MANUAL DIFF FLAG NO
[2024-07-24 07:33] LABS: Basophils Percent Auto 0.3 % (0-2); Eosinophils Absolute Auto 0.1 X10*3/uL (0.0-0.4); Eosinophils Percent Auto 1.6 % (0-4); Hematocrit 34.8 % (37.0-47.0); Hemoglobin 11.7 g/dl (12.0-16.0); Imm Gran Abs Auto 0.03 X10*3/uL (0.00-0.03); Imm Gran Pct Auto 0.4 % (0.0-0.4); Lymphocytes Absolute Auto 2.1 X10*3/uL (1.2-4.9); Mean Corpuscular HGB Conc 33.6 g/dl (31.0-35.0); Mean Corpuscular Hemoglobin 30.5 pg (27.0-33.0); Mean Corpuscular Volume 90.6 fL (80.0-98.0); Mean Platelet Volume 10.1 fL (9.4-12.3); Monocytes Absolute Auto 0.7 X10*3/uL (0.1-1.2); Monocytes Percent Auto 9.3 % (2-11); Neutrophils Absolute Auto 4.9 x10*3/uL (2.0-8.3); Neutrophils Percent Auto 62.4 % (45-73); Platelet Count 169 X10*3/uL (160-400); Red Blood Count 3.84 X10*6/uL (4.20-5.50); White Blood Count 7.9 X10*3/uL (4.8-10.8)
[2024-07-24 07:53] LABS: Anion Gap 14 (12-20); Blood Urea Nitrogen 15 mg/dL (9-16); Calcium 9.2 mg/dL (8.4-10.2); Carbon Dioxide 27 mmol/L (22-29); Chloride 105 mmol/L (96-108); Creatinine Clr Calc Pharmacy 96.1; Estimated Glomerular Filt Rate > 60; Glucose Fasting 142 mg/dL (60-99); Potassium 3.7 mmol/L (3.3-5.1); Sodium 142 mmol/L (135-145)
--- NOTE | 2024-07-24 08:45 | MHC.CM.PN ---
DP: PT HAS BEEN MEDICALLY CLEARED FOR DC HOME WITH [facility] FOR P.T. RX. [facility] WILL TRANSPORT HOME.
== END 2024-07-24 10:09 | disposition home health service (06) | DRG 326 ==
LOC: HO.SSSA 11:13 → HO.S3 11:25
PROVIDERS: Physician Assistant; Admitting Provider Orthopaedic Surgery; PCP Internal Medicine; Visit Provider Orthopaedic Surgery
PROC: 0SRD0J9 Replacement of Left Knee Joint with Synthetic Substitute, Cemented, Open Approach (ICD-10-PCS; CPT 27447; principal; 2024-07-22 07:30)
DX: M17.12 Unilateral primary osteoarthritis, left knee (principal); E11.40 Type 2 diabetes mellitus with diabetic neuropathy, unspecified; I10 Essential (primary) hypertension; K21.9 Gastro-esophageal reflux disease without esophagitis; G89.18 Other acute postprocedural pain; E78.5 Hyperlipidemia, unspecified; Z79.899 Other long term (current) drug therapy
CPT/HCPCS: 27447; 36415; 80048; 82947; 85025; 86850; 86900; 86901; 87640; 87641; 88305; 88311; 97110; 97116; 97161; 97530; C1776; J0131; J0665; J0690; J1100; J1170; J2250; J2270; J2371; J2405; J2704; J3370; J3371; J7120

== ENCOUNTER → 2024-07-22 09:29 | Outpatient (BNV) | payer OTHER, SELFPAY | PROVIDERS: Admitting Provider Orthopaedic Surgery; PCP Internal Medicine; Visit Provider Student in an Organized Health Care Education/Training Program | DX: M17.12 Unilateral primary osteoarthritis, left knee (principal); Z96.659 Presence of unspecified artificial knee joint | CPT/HCPCS: 99222 ==

== ENCOUNTER → 2024-07-22 09:29 | Outpatient (BNV) | payer OTHER, SELFPAY | PROVIDERS: Admitting Provider Orthopaedic Surgery; PCP Internal Medicine; Visit Provider Orthopaedic Surgery | DX: Z96.652 Presence of left artificial knee joint (principal) | CPT/HCPCS: 27447; 99024; G0180 ==

== ENCOUNTER 2024-08-08 08:43 | Outpatient (REF) | payer OTHER, SELFPAY ==
--- NOTE | ~2024-08-08 | XR_ITS ---
EXAMINATION: XR KNEE RIGHT 1 VIEW CLINICAL INFORMATION: Pain in unspecified knee M25.569. COMPARISON: None available TECHNIQUE: One standing view of the right knee. FINDINGS: No fracture or subluxation. Mild medial compartment narrowing of the right knee. The patellofemoral compartment is not evaluated. Nonaggressive appearing sclerosis in the mid tibial diaphysis. Total left knee arthroplasty noted. XR/XR knee RT 1V IMPRESSION: 1. Mild medial compartment narrowing of the right knee. The patellofemoral compartment is not evaluated. 2. Total left knee arthroplasty noted. Electronically signed by: Christopher Menard MD 10/02/2024 08:08 AM [facility]
== END 2024-08-08 08:44 | disposition home or self-care (01) ==
LOC: HO.HOSX 08:43
PROVIDERS: Visit Provider Physician Assistant
DX: M25.561 Pain in right knee (principal); M25.562 Pain in left knee; Z96.652 Presence of left artificial knee joint
CPT/HCPCS: 73560; 73562

== ENCOUNTER 2024-08-08 11:37 | Outpatient (AMB) | payer OTHER, SELFPAY ==
--- NOTE | 2024-08-08 12:33 | A.OFFVIS_ITS ---
Intake Visit Reasons: 2WK PO: L TKA w/ 07/22/24 Intake Note: Filomena is a 69 year old female who presents today for a post op appointment s/p L TKA 07/22/24 Patient reports she is doing very well. Allergies No Known Allergies Allergy (Verified 07/22/24 06:18) HPI HPI 2WK PO: L TKA w/ 07/22/24: Details: 69-year-old female who presents in the office today 12 days status post left total knee arthroplasty, which was performed on 07/22/[address] Gaines. While in the office today, the patient reports overall she is doing well. FORMERLY [facility], [facility] Medical History Arthritis GERD (gastroesophageal reflux disease) Nocturia Insomnia Subarachnoid hemorrhage Venous insufficiency of both lower extremities Cold sore Periumbilical hernia HTN (hypertension) Neuropathy Diabetes Radiculitis, cervical Hyperlipidemia PPD positive Depression Carpal tunnel syndrome Obesity Surgical History Hx of tubal ligation History of esophagogastroduodenoscopy (EGD) History of bilateral carpal tunnel release Hx of foot surgery H/O colonoscopy History of bunionectomy Social History Household Members: Spouse Housing: House Are you a primary direct care provider to a significant other at home: No Do you presently have visiting nurse or other home services: No Patient Tobacco Use Status: Never used Tobacco service: No Review of Systems Const All systems reviewed & are unremarkable except as noted in HPI and below Physical Exam Const General: cooperative, healthy appearing and no acute distress Resp Effort & Inspection: normal respiratory effort and able to speak in complete sentences Cardio Rate: regular rate Peripheral pulses: Peripheral pulses 2+ throughout GI Palpation (GI): Soft to palpation Skin Lesions: no lesions Rashes: no rashes Extrem Other: Left knee: incision site is clean, dry, and intact. [place] intact. No surrounding erythema or drainage. No signs of infection. ROM is 0-110 degrees. NVI. Assessment & Plan Assessment & Plan (1) Status post total left knee replacement: Code(s): Z96.652 - Presence of left artificial knee joint Category: Surgical Plan Ms. Fernández is a 69-year-old female who presents in the office today 12 days status post left total knee arthroplasty, which was performed on 07/22/[address] Gaines. While in the office today, the patient reports overall she is doing well. [place] were removed, and steri-strips were applied. The patient will attend outpatient physical therapy and I have placed an order for PT today. I sent a prescription for an antibiotic, amoxicillin 2000 mg PO (to be taken 1 hour prior to dental work) prophylactically for possible dental work in the future. However, the patient was educated they should not have any major dental work for the first 3 months post op after the procedure. Follow-up will be in 4 weeks, or sooner if needed. X-rays of the left knee which were obtained while in the office today and were reviewed by me, Kamilah Serrato PA-C, revealed: Intact orthopedic hardware with satisfactory alignment. Orders: Orders XR knee LT 3V Today M25.569 - Pain in unspecified knee XR knee RT 1V Today M25.569 - Pain in unspecified knee PT Evaluation and Treatment Today Z96.652 - Presence of left artificial knee joint Medications: New amoxicillin 2,000 mg (4 x 500 mg) PO ONCE 4 tabs 0RF take 4 tabs by mouth 1 hour prior to dental ppx 1 day Patient Instructions: Scribed by Starla Givens, medical insurance verifier, for Kamilah Serrato PA-C on 08/08/24 at 12:43 pm EST. Coding Level of Care Code Global (06901) Diagnoses Status post total left knee replacement Z96.652
== END 2024-08-08 12:47 | disposition home or self-care (01) ==
PROVIDERS: PCP Internal Medicine; Visit Provider Physician Assistant
DX: Z96.652 Presence of left artificial knee joint (principal)
CPT/HCPCS: 99024

== ENCOUNTER 2024-08-29 09:02 | Outpatient (AMB) | payer OTHER, SELFPAY ==
[2024-08-29 09:05] VITALS: BMI 33.8
--- NOTE | 2024-08-29 09:05 | MHC.OFFVIS ---
Vital Signs 08/29/24 09:05 Height 5 ft 5 in Weight 203 lb BMI 33.8 Intake Visit Reasons: 6WK PO: L TKA w/ 07/22/24 Intake Note: Filomena is a 69 year old female who presents today with complaints of mild intermittent discomfort in her left knee after undergoing left total knee replacement surgery on 07/22/2024. She continues with her home exercise program. She has completed formal physical therapy. She denies any fevers or chills. She takes just Tylenol for her discomfort. Allergies No Known Allergies Allergy (Verified 08/29/24 09:12) Medication List - Last Reconciled 08/29/24 by Glenn Gaines MD acetaminophen 650 mg (2 x 325 mg) PO Q6H PRN 30 days aspirin 81 mg PO BID 42 days docusate sodium 100 mg PO BID 30 days lisinopril 10 mg PO DAILY magnesium oxide 200 mg PO DAILY metformin ER 500 mg PO BIDWM methocarbamol 500 mg PO TID 7 days [id number] (Multivitamin 50 Plus tablet) 1 tab PO DAILY omeprazole 20 mg PO DAILY@0630 pravastatin 40 mg PO DAILY semaglutide (Ozempic) 1 mg subcut QWEEK vitamin B complex 1 cap PO DAILY vitamin D3-vitamin K2 (MK4) 1,000-100 unit-mcg 1 tab PO DAILY walker Folding front wheeled walker zolpidem 5 mg PO BEDTIME PRN PFSH Medical History Arthritis GERD (gastroesophageal reflux disease) Nocturia Insomnia Subarachnoid hemorrhage Venous insufficiency of both lower extremities Cold sore Periumbilical hernia HTN (hypertension) Neuropathy Diabetes Radiculitis, cervical Hyperlipidemia PPD positive Depression Carpal tunnel syndrome Obesity Surgical History Hx of tubal ligation History of esophagogastroduodenoscopy (EGD) History of bilateral carpal tunnel release Hx of foot surgery H/O colonoscopy History of bunionectomy Social History Household Members: Spouse Housing: House Are you a primary patient care associate to a significant other at home: No Do you presently have visiting nurse or other home services: No Patient Tobacco Use Status: Never used Tobacco service: No Physical Exam Vital Signs: BMI result Body Mass Index 33.8 Extrem Other: Left knee examination shows that the surgical incision is well healed, no erythema, full active extension and flexion to 125 degrees, her patella tracks well Assessment & Plan Assessment & Plan (1) Left knee pain: Code(s): M25.562 - Pain in left knee Category: Medical Plan Filomena continues to do very well after undergoing left total knee replacement surgery on 07/22/2024. She will continue with her home stretching program. She does know to take antibiotics before any dental work. She will contact me prior to her follow-up appointment in 3 months should any questions or concerns arise. Feel free to call me at any time should questions regarding her orthopedic management arise. Coding Level of Care Code Global (71512) Diagnoses Left knee pain M25.562
== END 2024-08-29 09:20 | disposition home or self-care (01) ==
LOC: HO.HOS 09:03
PROVIDERS: PCP Internal Medicine; Visit Provider Orthopaedic Surgery
DX: M25.562 Pain in left knee (principal)
CPT/HCPCS: 99024

== ENCOUNTER → 2024-08-29 09:02 | Outpatient (BNVA) | payer OTHER, SELFPAY | PROVIDERS: PCP Internal Medicine; Visit Provider Orthopaedic Surgery ==

== ENCOUNTER 2024-12-03 08:59 | Outpatient (REF) | payer OTHER, SELFPAY ==
--- NOTE | ~2024-12-03 | XR_ITS ---
CLINICAL HISTORY: M25.562 - Pain in left knee 3 views left knee Comparison: 08/08/2024 Findings: No fractures or dislocations. No joint effusion Left knee arthroplasty in good alignment. No signs of loosening or displacement of hardware No radiopaque foreign body Impression: Normal left knee arthroplasty in good alignment. This document has been electronically signed by: Octavio Adams MD on 12/03/2024 15:53:52
--- OUTSIDE RECORDS SUMMARY | 2024-12-03 09:49 | XMS_ITS | Clinical Summary ---
Author Organization [place] [address] [facility] Address [address] [place], [place] [address], [place] Phone Care Team Providers Care Electromechanical Equipment Assembler Name Role Phone Alex Marquez MD Primary Care Provider [phone] Allergies No known active allergies Medications blood glucose control high,low (FreeStyle Control) solution E11.49. TO check sugars once daily. 2 Active flash glucose scanning reader (FREESTYLE TALIA 2 READER MISC) 1 Device by Does not apply route continuous. 3 Active flash glucose sensor (FREESTYLE TALIA 2 SENSOR MISC) APPLY ONE SENSOR EVERY 14 DAYS 4 Active compression socks, medium misc ELASTIC BANDAGES & SUPPORTS (DIABETIC SOCKS MEDIUM) MISC: 1 Each by Does not apply route See Admin Instructions . E11.49 4 Active lisinopriL (PRINIVIL,ZEST RIL) 10 mg tablet Take 1 Tablet by mouth daily for 180 days. 4 025 Active metFORMIN XR (GLUCOPHAGE-XR ) 500 mg 24 hr tablet Take 1 tablet (500 mg total) by mouth 1 (one) time each day. 4 Active omeprazole (PriLOSEC) [address] capsule Take 1 Capsule by mouth daily. 4 Active pravastatin (PRAVACHOL) 40 mg tablet Take 1 Tablet by mouth daily. 4 Active Ozempic 2 mg/dose (8 mg/3 mL) injection pen INJECT 2MG INTO SKIN ONCE A WEEK 3 mL 5 4 Active zolpidem (AMBIEN) 5 mg tablet TAKE 1 TABLET BY MOUTH AT BEDTIME NEEDED FOR INSOMNIA 28 tablet 5 025 Active zolpidem (AMBIEN) 5 mg tablet TAKE 1 TABLET BY MOUTH AT BEDTIME NEEDED FOR INSOMNIA 28 tablet 4 025 Discontinued Active Problems Problem Noted Date Diagnosed Date Nocturia more than twice per night 06/21/2023 Overview (09/11/2024): Last Assessment & Plan: UA positive for trace blood, culture ordered - will treat as indicated. Reviewed behavioral modifications including avoiding fluids within 2 hours of bedtime, elevating feet well before lying down for bed, avoiding triggers and kegel exercises. Referral to urogynecology placed for further evaluation. 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 Depression 10/29/2009 Obesity (BMI 30-39.9) 03/11/2008 Anxiety 03/11/2008 Encounters Date Type Department Care Team Description 11/08/2024 8:49 AM EST - 11/08/2024 11:59 PM EST Hospital Encounter [facility]ound [facility] [address] [place] [phone] Gallbladder pain Discharge Disposition: Home or Self Care 10/29/2024 3:30 PM EST Office Visit [facility] [address] [facility] [place] [address] Alex Marquez MD Adult general medical examination (Primary Dx); Immunization due; Gallbladder pain; Type 2 diabetes mellitus with neurological manifestations, controlled ([facility]); Screening for thyroid disorder; Skin lesion 10/25/2024 4:40 PM EST Office Visit Endocrinology - [place] [id number] [place], [place] [phone] Aman Cuevas PA Type 2 diabetes mellitus with neurological manifestations, controlled (CMS/HCC) (Primary Dx); Hyperlipidemia, unspecified hyperlipidemia type; Obesity (BMI 30-39.9) 10/25/2024 2:14 PM EST - 10/25/2024 11:59 PM EST Hospital Encounter Radiology Department - [address] [phone] Encounter for screening mammogram for breast cancer Discharge Disposition: Home or Self Care 09/26/2024 [facility] [address] [place] [address] Alex Marquez MD Rib Injury from Last 3 Months Immunizations Name Administration Dates Next Due Influenza Quadravalent, MDCK , 0.5ml, preservative free (Flucelvax) 6mo and older 07/02/2020,07/23/2018 Influenza trivalent, 0.5mL ( Fluad) 65yo and older 08/01/2023,07/16/2022,08/19/2021 Influenza trivalent, 0.5mL, preservative free (Fluarix; FluLaval; Fluzone) ages 6mo and older (Afluria) 3 years and older 07/16/2019,08/07/2014,07/31/2012,07/28 PPD Test 02/26/2010 Pfizer (ages 12 & older) Biv alent, COVID-19 08/01/2023 Pfizer SARS-CoV-2 COVID-19, mRNA, LNP-S, preservative free 07/16/2022,03/02/2022,01/16/2021 Pneumococcal conjugate 13 va lent (Prevnar 13, PCV13) 2mo and older 07/02/2020 Pneumococcal polysaccharide 23 valent (Pneumovax 23) 2yo and older 04/21/2016 RSV, bivalent, protein subun it RSVpreF, 0.5mL, Preservative Free (Arexvy) 60yo and older 08/01/2023 Td Tetanus diptheria (Tdvax) 7yo and older 10/29/2024 Tdap Tetanus diptheria acell ular pertussis (Boostrix; Adacel) 7yo and older 01/09/2009 Zoster Live 07/26/2016 Surgical History Surgery Date Site/Laterality Comments OTHER SURGICAL HISTORY PROCEDURE: SC LIG/TRNSXJ FLP TUBE ABDL/VAG APPR UNI/BI COLONOSCOPY 04/09/2008 PROCEDURE: HISTORICAL COLONOSCOPY; COMMENT: normal; repeat in ten years CARPAL TUNNEL RELEASE 10/2011 PROCEDURE: SC NEUROPLASTY &/TRANSPOS MEDIAN NRV CARPAL TUNNE; COMMENT: both wrists; OTHER SURGICAL HISTORY 05/12/2016 PROCEDURE: SC CORRJ HLX VLGS BNCTY SESMDC DSTL METAR OSTEOT; COMMENT: left foot OTHER SURGICAL HISTORY - PROCEDURE: SC CORRECTION HAMMERTOE; COMMENT: left foot BUNIONECTOMY 02/09/2017 Right PROCEDURE: BUNION SURGERY, SIMPLE REMOVAL; COMMENT: yasmany suly bunionectomy UPPER GASTROINTESTINAL ENDOSCOPY 11/22/2019 PROCEDURE: SC UPPER GI ENDOSCOPY PERFORMED; COMMENT: Normal endoscopic findings COLONOSCOPY 11/22/2019 PROCEDURE: HISTORICAL COLONOSCOPY; COMMENT: Normal. Medical History Medical History Date Comments Depressive disorder, not els ewhere classified DX:Depressive disorder, not elsewhere classified Headache(784.0) DX:Headache(784. 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 Type II or unspecified type diabetes mellitus with neurological manifestations, not stated as uncontrolled(250.60) ([facility]/HCC) 04/22/2015 DX:Type II or unspecifi ed type diabetes mellitus with neurological manifestations, not stated as uncontrolled(250.60) ([facility]) Osteoarthritis DX:Osteoarthriti s Essential hypertension 07/26/2016 Family History Medical History Relation Name Comments No Known Problems Brother 1 No Known Problems Brother 2 Diabetes Father Other: generally well Mother No Known Problems Sister 1 No Known Problems Sister 2 No Known Problems Sister 3 Other: Other Sister 4 A Fib ? No Known Problems Son Breast cancer Neg Hx Colon cancer Neg Hx Ovarian cancer Neg Hx Pancreatic cancer Neg Hx Prostate cancer Neg Hx Uterine cancer Neg Hx Relation Name Status Comments Brother 1 Alive Brother 2 Alive Father Mother Sister 1 Alive Sister 2 Alive Sister 3 Alive Sister 4 Alive Son Alive Social History Tobacco Use Types Packs/Day Years Used Date Smoking Tobacco: Former Smokeless Tobacco: Never Tobacco Cessation:Counseling Given: Not Answered Alcohol Use Standard Drinks/Week Comments No 0 (1 standard drink = 0.6 oz pur e alcohol) Comments No Sex and Gender Information Value Date Recorded Sex Assigned at Not on file Legal Sex Female 9:42 PM EST Gender Identity Not on file Sexual Orientation Not on file Obstetrics History Para Term AB IAB SAB Ectopic Multiple Livin g Live Births 1 1 1 1 Date Outcome GA Total Labor Labor/2nd/3rd Weight Sex Type Anes PTL Misti A1 A5 Name Clin Term Last Filed Vital Signs Vital Sign Reading Time Taken Comments Blood Pressure 137/83 10/29/2024 3:08 PM EST AUT O CUFF Pulse 78 10/29/2024 3:08 PM EST AUTO CUFF Temperature 36.5 ??C (97.7 ??F) 10/25/2024 3:02 PM ES T Respiratory Rate - - Oxygen Saturation 94% 10/25/2024 3:02 PM EST Inhaled Oxygen Concentration - - Weight 87.5 kg (193 lb) 10/29/2024 3:08 PM EST Height 166.4 cm (5' 5.5 ) 10/29/2024 3:08 PM EST Body Mass Index 31.63 10/29/2024 3:08 PM EST Plan of Treatment Upcoming Encounters Date Type Department Care Team (Late st Contact Info) Description 02/24/2025 1:00 PM EDT Office Visit Endocrinology - [facility] [address] [place] [address] Amna Cuevas PA [address] [place] [address] Health Maintenance Due Date Last Done Comments Diabetes: Annual Retina Eye Exam 1966 Zoster Vaccines (2 of 3) 09/20/2016 07/26/2016 Depression Screening 10/01/2022 Falls Risk Assessment 10/01/2022 Osteoporosis Screening (Bone Density Screening) 10/01/2022 Social Influencers of Health Screening 10/01/2022 DTaP,Tdap,and Td Vaccines (3 - Td or Tdap) 04/28/2025 10/29/2024, 01/09/2009 Diabetes: Blood Sugar Control Test (HGBA1C) 04/28/2025 10/29/2024, 10/17/2024, 06/20/2024, Additional history exists Diabetes: Annual Foot Exam 06/26/2025 06/26/2024 Pneumococcal Vaccine: 50+ Years (3 of 3 - PCV20 or PCV21) 07/02/2025 07/02/2020, 04/21/2016 Diabetes: Annual Urine Albumin-Creatinine Ratio (uACR) 10/17/2025 10/17/2024, 08/23/2023 Diabetes: Annual GFR (Glomerular Filtration Rate) 10/29/2025 10/29/2024, 07/08/2024, 07/08/2024, Additional history exists Hypertension/CHF/CAD Annual BMP Blood Test 10/29/2025 10/29/2024, 07/08/2024, 07/08/2024, Additional history exists Breast Cancer Screening 10/25/2026 10/25/19, 10/18/2023, 10/14/2022, Additional history exists Cholesterol Screening (Lipid Panel) 10/29/2029 10/29/2024, 03/13/2024, 03/13/2024 Colorectal Cancer Screening: Colonoscopy 11/22/2029 11/22/2019 Hepatitis C Screening Completed 10/01/2013 Medicare Annual Wellness Visit Discontinued 05/01/2023 RSV Immunization Patients 60+ Years Old Completed 08/01/2023 COVID-19 Vaccine Completed 08/10/2024, 07/2023, 07/16/2022, Additional history exists Influenza Vaccine Completed 08/10/2024, , 07/16/2022, Additional history exists HIB Vaccines Aged Out No longer eligi ble based on patient's age to complete this topic HPV Vaccines Aged Out No longer eligi ble based on patient's age to complete this topic Hepatitis A Vaccines Aged Out No long er eligible based on patient's age to complete this topic Hepatitis B Vaccines Aged Out No long er eligible based on patient's age to complete this topic IPV Vaccines Aged Out No longer eligi ble based on patient's age to complete this topic MMR Vaccines Aged Out No longer eligi ble based on patient's age to complete this topic Meningococcal ACWY Vaccine Aged Out N o longer eligible based on patient's age to complete this topic Meningococcal B Vacine Aged Out No lo nger eligible based on patient's age to complete this topic RSV Immunization Patients Under 20 months Aged Out No longer eligible based on patient's age to complete this topic Varicella Vaccines Aged Out No longer eligible based on patient's age to complete this topic Procedures Procedure Name Priority Date/Time Associated Diagnosis Comments US ABDOMEN COMPLETE Routine 11/08/2024 9 :26 AM EST Gallbladder pain HEMOGLOBIN A1C Routine 10/29/2024 3:59 PM EST Type 2 diabetes mellitus with neurological manifestations, controlled (CMS/HCC) ALANINE AMINOTRANSFERASE Routine 3:59 PM EST Type 2 diabetes mellitus with neurological manifestations, controlled (CMS/HCC) ASPARTATE AMINOTRANSFERASE Routine 10/29/2024 3:59 PM EST Type 2 diabetes mellitus with neurological manifestations, controlled (CMS/HCC) BASIC METABOLIC PANEL Routine 10/29/2024 3:59 PM EST Type 2 diabetes mellitus with neurological manifestations, controlled (CMS/HCC) LIPID PANEL WITH REFLEX TO DIRECT LDL Routine 10/29/2024 3:59 PM EST Type 2 diabetes mellitus with neurological manifestations, controlled (CMS/HCC) COMPLETE BLOOD COUNT Routine 10/29/2024 3:59 PM EST Gallbladder pain THYROID STIMULATING HORMONE Routine 10/29/2024 3:59 PM EST Type 2 diabetes mellitus with neurological manifestations, controlled (CMS/HCC) Screening for thyroid disorder MG MAMMO DIGITAL SCREENING W REMIGIO BILAT Routine 10/25/2024 2:42 PM EST Encounter for screening mammogram for breast cancer MICROALBUMIN CREATININE URINE RATIO Routine 10/17/2024 8:47 AM EST Type 2 diabetes mellitus with neurological manifestations, controlled (CMS/HCC) Microalbuminuria HEMOGLOBIN A1C Routine 10/17/2024 8:47 AM EST Type 2 diabetes mellitus with neurological manifestations, controlled (CMS/HCC) Microalbuminuria DIABETES FOOT EXAM Routine 06/26/2024 COLONOSCOPY Routine 11/22/2019 HEPATITIS C SCREENING Routine 10/01/2013 from Last 3 Months or Most Recently Relevant to Health Maintenance Results * US Abdomen Complete (11/08/2024 9:26 AM EST) Anatomical Region Laterality Modality Body Ultrasound 11/08/2024 10:1 0 AM EST Impressions 11/08/2024 10:13 AM EST Hepatic steatosis. Gallbladder is unremarkable. -------- FINAL REPORT -------- Dictated By: Gifty Carcamo Dictated Date: 11/08/2024 10:10 ET Assigned Physician: Gifty Carcamo Reviewed and Electronically Signed By: Gifty Carcamo Signed Date: 11/08/2024 10:13 ET Workstation ID: [id number] Transcribed By: Self Edit Transcribed Date: 11/08/2024 10:10 ET Narrative 11/08/2024 10:13 AM EST ABDOMINAL ULTRASOUND History: ??Question gallbladder disease. Comparison: Abdominal ultrasound 07/22/2019. FINDINGS: There is no evidence of cholelithiasis. The common bile duct is not dilated, measuring 5 mm. ??The gallbladder wall is not thickened. No pericholecystic fluid is seen. No ascites are seen. The visualized pancreas is normal in size and demonstrates normal echotexture. ??However, the tail the pancreas is obscured by overlying bowel gas. The liver measures 18.4 cm in length and demonstrates echogenic echotexture. No focal lesions are seen in the liver and there is no evidence of intrahepatic ductal dilation. Normal hepatopedal flow is seen in the main portal vein. No evidence of hydronephrosis, solid mass, or calculus was seen in either kidney. ?? There is a 1.3 x 1.0 x 1.4 cm cyst in the midpole of the left kidney. The right kidney measures 11.7 cm in greatest length. ??The left kidney measures ??12.2 cm in length. The spleen measures ??cm in length. The visualized abdominal aorta and IVC are unremarkable. Procedure Note Gifty Carcamo MD - 11/08/2024 ABDOMINAL ULTRASOUND History: Question gallbladder disease. Comparison: Abdominal ultrasound 07/22/2019. FINDINGS: There is no evidence of cholelithiasis. The common bile duct isnot dilated, measuring 5 mm. The gallbladder wall is not thickened. Nopericholecystic fluid is seen. No ascites are seen. The visualized pancreas is normal in size and demonstrates normalechotexture. However, the tail the pancreas is obscured by overlyingbowel gas. The liver measures 18.4 cm in length and demonstrates echogenicechotexture. No focal lesions are seen in the liver and there is noevidence of intrahepatic ductal dilation. Normal hepatopedal flow is seenin the main portal vein. No evidence of hydronephrosis, solid mass, or calculus was seen in eitherkidney. There is a 1.3 x 1.0 x 1.4 cm cyst in the midpole of the left kidney. The right kidney measures 11.7 cm in greatest length. The left kidneymeasures 12.2 cm in length. The spleen measures cm in length. The visualized abdominal aorta and IVC are unremarkable. IMPRESSION: Hepatic steatosis. Gallbladder is unremarkable. -------- FINAL REPORT -------- Dictated By: Gifty Carcamo Dictated Date: 11/08/2024 10:10 ET Assigned Physician: Gifty Carcamo Reviewed and Electronically Signed By: Gifty Carcamo Signed Date: 11/08/2024 10:13 ET Workstation ID: [id number] Transcribed By: Self Edit Transcribed Date: 11/08/2024 10:10 ET us Alex Marquez MD [facility] [place] Final Result * Lipid panel with reflex to direct LDL (10/29/2024 3:59 PM EST) Cholesterol 176 0 - 200 mg/dL LAB CHEMISTRY METHOD 10/29/2024 6:28 PM EST [facility] Triglycerides 128 0 - 150 mg/dL LAB CHEMISTRY METHOD 10/29/2024 6:28 PM EST [facility] HDL 77 >=40 mg/dL LAB CHEMISTRY METHOD 10/29/2024 6:28 PM [facility] LDL Calculated 73 0 - 100 mg/dL LAB CHEMISTRY METHOD 10/29/2024 6:28 PM [facility] VLDL Cholesterol Mika 25.6 mg/dL LAB CHEMISTRY METHOD 10/29/2024 6:28 PM [facility] Non HDL Chol. (LDL+VLDL) 99 <145 mg/dL LAB CHEMISTRY METHOD 10/29/2024 6:28 PM [facility] Chol/HDL Ratio 2.3 0.0 - 4.4 LAB CHEMISTRY METHOD 10/29/2024 6:28 PM [facility] Blood Venous blood specimen / Unknown Venipuncture / Unknown 10/29/2024 3:59 PM EST 10/29/2024 3:59 PM EST Alex Marquez MD LAB BLOOD ORDERABLES Final Res ult [facility] [address] [place] [address], * Complete blood count (10/29/2024 3:59 PM EST) WBC 5.8 4.8 - 10.8 K/mcL LAB HEMETOLOGY METHOD 10/29/2024 6:19 PM [facility] RBC 4.80 3.80 - 4.80 M/mcL LAB HEMETOLOGY METHOD 10/29/2024 6:19 PM [facility] Hemoglobin 14.0 11.5 - 16.0 g/dL LAB HEMETOLOGY METHOD 10/29/2024 6:19 PM [facility] Hematocrit 43.8 35.0 - 47.0 % LAB HEMETOLOGY METHOD 10/29/2024 6:19 PM [facility] MCV 91.3 79.0 - 98.0 FL LAB HEMETOLOGY METHOD 10/29/2024 6:19 PM EST [facility] MCH 29.2 27.0 - 32.0 pcg LAB HEMETOLOGY METHOD 10/29/2024 6:19 PM EST [facility] MCHC 32.0 32.0 - 37.0 g/dL LAB HEMETOLOGY METHOD 10/29/2024 6:19 PM EST [facility] RDW 13.3 11.0 - 15.0 % LAB HEMETOLOGY METHOD 10/29/2024 6:19 PM [facility] Platelets 214 130 - 400 K/mcL LAB HEMETOLOGY METHOD 10/29/2024 6:19 PM EST [facility] MPV 10.4 7.0 - 11.0 FL LAB HEMETOLOGY METHOD 10/29/2024 6:19 PM EST [facility] NRBC 0.0 <1.0 % LAB HEMETOLOGY METHOD 10/29/2024 6:19 PM [facility] NRBC Absolute 0.00 <0.10 K/mcL LAB HEMETOLOGY METHOD 10/29/2024 6:19 PM EST [facility] Blood Venous blood specimen / Unknown Venipuncture / Unknown 10/29/2024 3:59 PM EST 10/29/2024 3:59 PM EST us Alex Marquez MD LAB BLOOD ORDERABLES Final Res ult [facility] [address] [place] [address], * Alanine aminotransferase (10/29/2024 3:59 PM EST) ALT (SGPT) 29 10 - 60 unit/L LAB CHEMISTRY METHOD 10/29/2024 6:28 PM EST [facility] Blood Venous blood specimen / Unknown Venipuncture / Unknown 10/29/2024 3:59 PM EST 10/29/2024 3:59 PM EST us Alex Marquez MD LAB BLOOD ORDERABLES Final Res ult Performing Organization Address [facility]/ZIP Co de Phone Number [facility] [address] [place] [address], [place] [phone] * Aspartate aminotransferase (10/29/2024 3:59 PM EST) AST (SGOT) 14 10 - 42 unit/L LAB CHEMISTRY METHOD 10/29/2024 6:28 PM EST [facility] Blood Venous blood specimen / Unknown Venipuncture / Unknown 10/29/2024 3:59 PM EST 10/29/2024 3:59 PM EST us Alex Marquez MD LAB BLOOD ORDERABLES Final Res ult Performing Organization Address [facility]/ZIP Co de Phone Number [facility] [address] [place] [address], [place] [phone] * Thyroid stimulating hormone (10/29/2024 3:59 PM EST) [facility] TSH 1.12 0.40 - 4.00 mcIU/mL LAB CHEMISTRY METHOD 10/29/2024 6:36 PM EST [facility] Blood Venous blood specimen / Unknown Venipuncture / Unknown 10/29/2024 3:59 PM EST 10/29/2024 3:59 PM EST us Alex Marquez MD LAB BLOOD ORDERABLES Final Res ult Performing Organization Address [facility]/ZIP Co de Phone Number [facility] [address] [place] [address], [place] [phone] * Hemoglobin A1c (10/29/2024 3:59 PM EST) Only the most recent of2 resultswithin the time period is included. [facility] Hemoglobin A1C 6.4 <6.5 % LAB CHEMISTRY METHOD 10/29/2024 9:55 PM [facility] Mean Bld Glu Estim. 137 mg/dL LAB CHEMISTRY METHOD 10/29/2024 9:55 PM [facility] Blood Venous blood specimen / Unknown Venipuncture / Unknown 10/29/2024 3:59 PM EST 10/29/2024 3:59 PM EST us Amna [place] LAB BLOOD ORDERABLES Final Resul t [facility] [address] [place] [address], [place] [phone] * (ABNORMAL) Basic metabolic panel (10/29/2024 3:59 PM EST) [facility] Sodium 139 133 - 145 mmol/L LAB CHEMISTRY METHOD 10/29/2024 6:28 PM [facility] Potassium 4.0 3.5 - 5.5 mmol/L LAB CHEMISTRY METHOD 10/29/2024 6:28 PM [facility] Chloride 104 96 - 110 mmol/L LAB CHEMISTRY METHOD 10/29/2024 6:28 PM [facility] CO2 30 21 - 32 mmol/L LAB CHEMISTRY METHOD 10/29/2024 6:28 PM [facility] Anion Gap 5 3 - 11 LAB CHEMISTRY METHOD 10/29/2024 6:28 PM [facility] Glucose 104(H) 70 - 100 mg/dL LAB CHEMISTRY METHOD 10/29/2024 6:28 PM [facility] BUN 15 5 - 25 mg/dL LAB CHEMISTRY METHOD 10/29/2024 6:28 PM [facility] Creatinine 0.57 0.50 - 1.10 mg/dL LAB CHEMISTRY METHOD 10/29/2024 6:28 PM EST [facility] eGFR 99 >=60 mL/min/1. 73m2 LAB CHEMISTRY METHOD 10/29/2024 6:28 PM EST [facility] Comment:Calculation based on the??Chronic Kidney Disease Epidemiology Collaboration (CKD-EPI) equation refit??without adjustment for race. BUN/Creatinine Ratio 26.3 LAB CHEMISTRY METHOD 10/29/2024 6:28 PM EST [facility] Calcium 9.1 8.5 - 10.5 mg/dL LAB CHEMISTRY METHOD 10/29/2024 6:28 PM EST [facility] Blood Venous blood specimen / Unknown Venipuncture / Unknown 10/29/2024 3:59 PM EST 10/29/2024 3:59 PM EST us Alex Marquez MD LAB BLOOD ORDERABLES Final Res ult [facility] [address] [place] [address], [place] [phone] * MG Mammo Digital Screening w Remigio bilat (10/25/2024 2:42 PM EST) Anatomical Region Laterality Modality Breast Bilateral Mammography 10/28/2024 7:23 AM EST Impressions 10/28/2024 7:26 AM EST Benign. BI-RADS CATEGORY: 1 - NEGATIVE RECOMMENDATION: Screening bilateral mammogram is recommended in 1 year. Mammo Location: [facility], [address] [place] [address], [id number], . -------- FINAL REPORT -------- Dictated By: Gifty Carcamo Dictated Date: 10/28/2024 07:23 ET Assigned Physician: Gifty Carcamo Reviewed and Electronically Signed By: Gifty Carcamo Signed Date: 10/28/2024 07:26 ET Workstation ID: [id number] Transcribed By: Self Edit Transcribed Date: 10/28/2024 07:23 ET Narrative 10/28/2024 7:26 AM EST CLINICAL: 69 years old, Female, routine annual exam. COMPARISON: Mammograms dating back to 05/22/2020 with most recent of 10/18/2023. ?? TECHNIQUE: Bilateral MLO and CC views were obtained digitally with 3-D mammogram (digital breast tomosynthesis). Computer-aided detection was utilized in evaluation of this exam (CAD). FINDINGS: There is no evidence of suspicious mass or architectural distortion. ??No worrisome calcifications are evident. ??There has been no significant change from prior exam(s). ?? BREAST DENSITY: B - There are scattered areas of fibroglandular density. Procedure Note Gifty Carcamo MD - 10/28/2024 CLINICAL: 69 years old, Female, routine annual exam. COMPARISON: Mammograms dating back to 05/22/2020 with most recent of10/18/2023. TECHNIQUE: Bilateral MLO and CC views were obtained digitally with 3-Dmammogram (digital breast tomosynthesis). Computer-aided detection wasutilized in evaluation of this exam (CAD). FINDINGS: There is no evidence of suspicious mass or architectural distortion. Noworrisome calcifications are evident. There has been no significantchange from prior exam(s). BREAST DENSITY: B - There are scattered areas of fibroglandular density. IMPRESSION: Benign. BI-RADS CATEGORY: 1 - NEGATIVE RECOMMENDATION: Screening bilateral mammogram is recommended in 1 year. Mammo Location: [facility], [address] [place] [address], [facility], . -------- FINAL REPORT -------- Dictated By: Gifty Carcamo Dictated Date: 10/28/2024 07:23 ET Assigned Physician: Gifty Carcamo Reviewed and Electronically Signed By: Gifty Carcamo Signed Date: 10/28/2024 07:26 ET Workstation ID: [id number] Transcribed By: Self Edit Transcribed Date: 10/28/2024 07:23 ET us Alex Marquez MD IMG BI PROCEDURES Final Result * Microalbumin creatinine urine ratio (10/17/2024 8:47 AM EST) [facility] Creatinine, Urine 90.0 mg/dL LAB CHEMISTRY METHOD 10/17/2024 12:58 PM EST [facility] Microalb, Ur 21.1 0.0 - 29.0 mg/L LAB CHEMISTRY METHOD 10/17/2024 12:58 PM EST [facility] Microalb/Creat Ratio 23 <30 mg/g creat LAB CHEMISTRY METHOD 10/17/2024 12:58 PM EST [facility] Urine Urine specimen obtained by clean catch procedure / Unknown Non-blood Collection / Unknown 10/17/2024 8:47 AM EST 10/17/2024 8:47 AM EST Amna MARTINEZ LAB URINE ORDERABLES Final Resul t [facility] [address] [place] [address], * Diabetes Foot Exam (06/26/2024) [facility] Diabetes: Annual Foot Exam Abstracted [facility] Provider HEALTH MAINTENANCE Final Result * Colonoscopy (11/22/2019) [facility] Colonoscopy Abstracted, No interpretation Anatomical Region Laterality Modality Other [facility] Provider HEALTH MAINTENANCE Final Result * Hepatitis C Screening (10/01/2013) 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
--- OUTSIDE RECORDS SUMMARY | 2024-12-03 09:49 | XMS_ITS | Encounter Summary ---
Author Organization [facility] Address [address] [place] [address] Care Team Providers Care Pumper Gauger Name Role Phone Alex Marquez MD Primary Care Provider [phone] Reason for Referral * Imaging (Routine) - Closed Specialty Diagnoses / Procedures Referred By Franklin baum Referred To Contact Radiology Diagnoses Gallbladder pain Procedures US Abdomen Complete Alex Marquez MD [address] [place] [address] Phone: tel: fax: [address] Phone: tel: Referral ID Status Reason Start Date Expiration Date Visits Re quested Visits Authorized [id number] Closed 10/29/2024 10/29/2025 1 1 Reason for Visit * Imaging (Routine) - Closed Specialty Diagnoses / Procedures Referred By Franklin baum Referred To Contact Radiology Diagnoses Gallbladder pain Procedures US Abdomen Complete Alex Marquez MD [address] [place] [address] Phone: tel: fax: [address] Phone: tel: Referral ID Status Reason Start Date Expiration Date Visits Re quested Visits Authorized [id number] Closed 10/29/2024 10/29/2025 1 1 Encounter Details Date Type Department Care Team (Latest Contact Info) Description 11/08/2024 8:49 AM EST - 11/08/2024 11:59 PM EST Hospital Encounter [facility]ound [facility] [address] [place] [address] Gallbladder pain Discharge Disposition: Home or Self Care Social History Tobacco Use Types Packs/Day Years Used Date Smoking Tobacco: Former Smokeless Tobacco: Never Alcohol Use Standard Drinks/Week Comments No 0 (1 standard drink = 0.6 oz pur e alcohol) Comments No Sex and Gender Information Value Date Recorded Sex Assigned at Not on file Legal Sex Female 9:42 PM EST Gender Identity Not on file Sexual Orientation Not on file documented as of this encounter Medications at Time of Discharge blood glucose control high,low (FreeStyle Control) solution E11.49. TO check sugars once daily. 10/19/2022 compression socks, medium misc ELASTIC BANDAGES & SUPPORTS (DIABETIC SOCKS MEDIUM) MISC: 1 Each by Does not apply route See Admin Instructions. E11.49 06/26/2024 flash glucose scanning reader (FREESTYLE TALIA 2 READER [facility] 1 Device by Does not apply route continuous. 11/15/2022 flash glucose sensor (FREESTYLE TALIA 2 [facility]) APPLY ONE SENSOR EVERY 14 DAYS 07/22/2024 lisinopriL (PRINIVIL,ZESTRI L) 10 mg tablet Take 1 Tablet by mouth daily for 180 days. 08/13/2024 02/09/2025 metFORMIN XR (GLUCOPHAGE-XR) 500 mg 24 hr tablet Take 1 tablet (500 mg total) by mouth 1 (one) time each day. 05/13/2024 omeprazole (PriLOSEC) [address] capsule Take 1 Capsule by mouth daily. 07/16/2024 Ozempic 2 mg/dose (8 mg/3 mL) injection pen INJECT 2MG INTO SKIN ONCE A WEEK 3 mL 5 09/12/2024 pravastatin (PRAVACHOL) 40 mg tablet Take 1 Tablet by mouth daily. 07/16/2024 zolpidem (AMBIEN) 5 mg tablet TAKE 1 TABLET BY MOUTH AT BEDTIME NEEDED FOR INSOMNIA 28 tablet 11/06/2024 12/04/2024 documented as of this encounter Discharge Disposition Disposition Code Departure Means Destination Home or Self Care documented in this encounter Plan of Treatment Upcoming Encounters Date Type Department Care Team (Late st Contact Info) Description 02/24/2025 1:00 PM EDT Office Visit Endocrinology - [place] [address] [place] [address] Amna Cuevas PA [address] [place] [address] documented as of this encounter Procedures Procedure Name Priority Date/Time Associated Diagnosis Comments US ABDOMEN COMPLETE Routine 11/08/2024 9 :26 AM EST Gallbladder pain documented in this encounter Results * US Abdomen Complete (11/08/2024 9:26 AM EST) Anatomical Region Laterality Modality Body Ultrasound 11/08/2024 10:1 0 AM EST Impressions 11/08/2024 10:13 AM EST Hepatic steatosis. Gallbladder is unremarkable. -------- FINAL REPORT -------- Dictated By: Gifty Carcamo Dictated Date: 11/08/2024 10:10 ET Assigned Physician: Gifty Carcamo Reviewed and Electronically Signed By: Gifty Carcamo Signed Date: 11/08/2024 10:13 ET Workstation ID: [id number] Transcribed By: Self Edit Transcribed Date: 11/08/2024 [...] Signed Date: 11/08/2024 10:13 ET Workstation ID: [id number] Transcribed By: Self Edit Transcribed Date: 11/08/2024 10:10 ET us Alex Marquez MD [facility] [place] US PROCEDURES Final Result documented in this encounter Visit Diagnoses Diagnosis Gallbladder pain Unspecified disorder of gallbladder documented in this encounter Care Teams Pumper Gauger Relationship Specialty Start Date End Date Alex Marquez MD [address] [place] [address] PCP - General Internal Medicine 10/17/24 documented as of this encounter
--- OUTSIDE RECORDS SUMMARY | 2024-12-03 09:49 | XMS_ITS | Data Portability ---
Author Organization [facility] [place] Address [address] [facility] [address] [place] [address] Care Team Providers Care Photographic Plate Maker Name Role Phone TIKI XIAO Primary Care Provider Assessment Encounter Date Assessment Date Assessment LastModified by Organization Details LastModified Time 03/27/2023 03/27/2023 67-year-old female presents with complaint of left knee pain. Examination and x-rays are consistent with osteoarthritis . After discussion regarding treatment options she wishes to proceed with cortisone injection. Recommended recheck in this office in 6 weeks. Not available 03/27/2023 15:38:10 Plan of Treatment Reminders Order Date Submit Date Provider Last Modified By Organization Details Last Modified Time Details Appointments None recorded. Lab None recorded. Referral None recorded. Procedures None recorded. Surgeries None recorded. Imaging XR, knee, 4 or more view 2022 023 [email or web address], [address], [place], [address], 3 15:53:34 Medication Orders meloxicam 15 mg tablet 2022 023 [id number], [id number] , [place], [place], [id number], 15:03:38 Patient TargetsNo targets recorded. Patient Instructions Encounter Date Encounter Id Patient Instructions Last Modified By Organization Details Last Modified Time 03/27/2023 [id number] X-rays show evidence of {{mild moderate* severe}} {{right left* krista ateral}} {{hip knee*}} osteoarthritis. There is joint space narrowing, subchondral sclerosis and marginal osteophytosis. No evidence of acute fracture or osteolytic findings. Not available 03/27/2023 15:37:49 Reason for Referral None Reported. Problems Name Problem SNOMED Code Status Onset Date Resolution Date Notes Provider Name and Address Organization Details Recorded Time Osteoarthri tis of left knee joint 4504006523333 09 Active 2022 Robert Haskins MD [address], [place], [address], [place] [facility] 3 15:03:17 Arthritis of left knee 0177996647983 104 Active 2022 EUGENIA MARC PA-C [address], [place], [address], [place] [facility] 3 15:37:23 Problem Notes None recorded. Procedures Surgical History Date Name Laterality Status Provider Name and Address Organization Details Recorded Time 3 MJG Knee injection w/US completed EUGENIA MARC PA-C [address], [place], [address], [place] [facility] 03/27/2023 15:37:10 Imaging Results None recorded. Procedure Notes None recorded. Medical Equipment None Reported. Allergies No known drug allergies Medications Name Sig Start Date Stop Date Status Note LastModified by Organization Details LastModified Time freestyle lancets misc active Not Available Not Available Not Available pravastatin 40 mg tablet TAKE 1 TABLET BY MOUTH DAILY active Not Available Not Available Not Available meloxicam 15 mg tablet TAKE 1 TABLET BY MOUTH EVERY DAY NEEDED active Not Available Not Available No t Available FreeStyle Lancets 28 gauge USE TO CHECK BLOOD SUGAR ONCE DAILY active Not Available Not Available No t Available glipizide ER 5 mg tablet, extended release 24 hr TAKE 1 TABLET BY MOUTH TWICE DAILY active Not Available Not Available No t Available omeprazole 20 mg capsule,berry yed release TAKE 1 CAPSULE BY MOUTH DAILY active Not Available Not Available Not Available lisinopril 5 mg tablet TAKE 1 TABLET BY MOUTH DAILY active Not Available Not Available Not Available zolpidem 5 mg tablet TAKE 1 TABLET BY MOUTH AT BEDTIME active Not Available Not Available No t Available metformin ER 500 mg tablet,exten ded release 24 hr TAKE 1 TABLET BY MOUTH TWICE DAILY WITH FOOD active Not Available Not Available No t Available glipizide 5 mg tablet TAKE 1 TABLET BY MOUTH TWICE DAILY BEFORE MEALS active Not Available Not Available No t Available naproxen 500 mg tablet TAKE 1 TABLET BY MOUTH TWICE DAILY WITH MEALS FOR 10 DAYS active Not Available Not Available No t Available FreeStyle Control solution USE TO CHECK BLOOD SUGAR ONCE DAILY active Not Available Not Available No t Available chlorhexidin e gluconate 0.12 % mouthwash RINSE WITH 15 ML BY MOUTH FOR 30 SECONDS ONCE DAILY AT NIGHT TIME BEFORE BEDTIME. DO NOT EXCEED 15 DAYS OF USE active Not Available Not Available No t Available FreeStyle Lite Meter kit USE TO CHECK BLOOD SUGAR ONCE DAILY active Not Available Not Available No t Available FreeStyle Lite Strips USE TO TEST BLOOD SUGAR ONCE DAILY active Not Available Not Available N ot Available diclofenac 1 % topical gel APPLY 1 GRAM TOPICALLY TO THE AFFECTED AREA THREE TIMES DAILY FOR 14 DAYS active Not Available Not Available Not Available Trulicity 1.5 mg/0.5 mL subcutaneous pen injector ADMINISTER 1.5 MG UNDER THE SKIN 1 TIME A WEEK active Not Available Not Available No t Available Trulicity 0.75 mg/0.5 mL subcutaneous pen injector active Not Available Not Available Not Available FreeStyle Yann 2 Sensor kit APPLY TOPICALLY EVERY 14 DAYS active Not Available Not Available No t Available FreeStyle Yann 2 [place] DIRECTED active Not Available Not Available Not Available Vitals Date Recorded Body height Body mass index (BMI) Body weight Provider Name and Address Organization Details Last Updated DateTime 03/27/2023 160.02 cm 37.6 kg/m2 [address] [place] [facility] 03/27/2023 15:16:02 Date Recorded Body height Provider Name an d Address Organization Details Last Updated DateTime 04/07/2023 160[address] [place] [facility] 04/07/2023 14:51:14 Date Recorded Body mass index (BMI) Body weight Provider Name and Address Organization Details Last Updated DateTime 04/07/2023 36.7 kg/m2 [address].[address] [place] [facility] 04/07/2023 14:56:45 Social History Question Answer Notes LastModified by Organizat ion Details LastModified Time Tobacco Smoking Status Never Smoker Kolton David null, [place] [facility] 03/27/2023 15:16:09 What Is Your Level Of Alcohol Consumption? None [email or web address] Information not available 03/27/2023 Do You Use Any Illicit Or Recreational Drugs? No [email or web address] Information not available 03/27/2023 Do You Or Have You Ever Used Any Other Forms Of Tobacco Or Nicotine? No [email or web address] Information not available 03/27/2023 Sex: Unknown Functional Status None recorded. Mental Status None recorded. Family History Nothing Reported. Medical History Condition Response Diabetes Y Hypertension Y Gynecological HistoryNo gynecological history recorded. Obstetrics History GPAL:G 0 P 0 0 0 0 Past Encounters Encounter ID Performer Location Encounter Start Date Encounter Closed Date Diagnosis/Indication Diagnosis SNOMED-CT Code Diagnosis ICD10 Code Diagnosis Note [id number] MD NATHANIEL Adam [facility] [address] [address] 03/27/2023 14:39:27 03/27/2023 15:53:34 Pain of left knee joint 6146602720 91207 M25.562 Arthritis of left knee 7635235357 747489 M13.862 [id number] [facility] [address] [facility] [address] [place] [address] 04/07/2023 14:26:40 04/07/2023 15:18:09 Osteoarthritis of left knee joint 3573694198 03186 M17.12 Health Concerns Section Related Observation LastModified by Organization Detai ls LastModified Time None Recorded Concern Status LastModified by Organization Details LastModified Time None Recorded Advance Directives Directive None Recorded Payers Encounter Date Sequence Insurance Name Policy Number Policy Heck Covered Member ID Heck Member ID Guarantor Name 03/27/2023 2 [facility] [id number] Filomena Fernández [id number] Filomena Fernández 03/27/2023 3 [place]: [employer] Filomena Fernández [id number] Filomena Fernández 04/07/2023 1 [facility] - MEDICARE ADVANTAGE PLAN (MEDICARE REPLACEMENT HMO) [id number] Filomena Winterzjos [id number] Filomena Fernández Notes Date Note Type Note Provider Name and Address Organization Details Recorded Time 03/27/2023 text/html 67-year-old fema deep presents with complaint of left knee pain. She reports months or even years worth of mild ache and soreness but it has recently spiked in intensity. The pain is largely at the anterior aspect of the joint. She denies a history of any prior surgery fracture dislocation or need for medical attention to the left knee. She is yet to initiate any specific type of treatment course. There is no involvement of the low back there is no radiation of symptoms down the leg. EUGENIA MRAC PA-C [address] [place] [address],[facility] [address], [place], [address], [place] [facility] 03/27/2023 15:38:35 04/07/2023 text/html HPI:Patient is h ere today with complaints of left knee pain. ?The patient is experiencing left knee pain, which is moderate in intensity, and has recently worsened. The pain limits some activities of daily living. Walking tolerance is reduced. Pain and restriction of function are moderate at this time. She states she has really only had pain for about 1 month. She saw Eugenia Marc on March 27. She had an injection. This did not bring significant relief. Review of systems is negative for other rapidly progressive neurological disorder, chest pain, shortness of breath, fevers, chills, or any signs of active or persistent local or systemic infection. Physical Exam? ? ?: Patient is well nourished, well-developed, in no acute distress, with appropriate mood and affect. The patient is oriented to time, place, and person. Examination of the contralateral knee shows normal range of motion, strength, no tenderness, and intact skin. The affected limb is well-perfused, without skin lesions, shows a grossly normal motor and sensory examination. Left knee motion is {{reduced and does cause significant pain* is not reduced and does not cause significant pain}}. The left knee moves from 0-130 degrees. The knees are stable within those [id number]. The alignment of the left knee is {{varus valgus neut ral*}} . Muscle strength is normal. Pedal pulses are palpable. Hip examination, including flexion and internal rotation, was negative in that groin pain was not produced. Radiographs of the left knee from March 27, 2023 demonstrate mild degenerative changes in the medial compartment. Assessment/Plan? ? ?: The patient has mild left knee arthritis. An extensive discussion was conducted on the natural history of the disease and the variety of surgical and non-surgical options available to the patient including, but not limited to non-steroidal anti-inflammatory medications, steroid injections, viscosupplementatio n, physical therapy, maintenance of ideal body weight, and reduction of activity. I discussed with her that she should still give time for the steroid injection to work. I am also prescribing her meloxicam. Patient was prescribed meloxicam. Discussed the risks of NSAID use with the patient, including but not limited to stomach irritation, gastric ulcers, kidney issues, and bleeding. If considering long-term use, the patient should discuss with their primary care physician. I do not think surgical intervention is warranted for her. Gel injection can be considered in the future. Further follow-up with JUAN Garcia. Robert Haskins MD [address] [place] [address], [phone], [place] [facility] 04/07/2023 15:06:32 OBGyn Episode No OBEpisode recorded.
--- OUTSIDE RECORDS SUMMARY | 2024-12-03 09:50 | XMS_ITS ---
Author Name [facility] Organization Unknown History of Medication Use Medication Directions Dispensed Refills Start Date End Date Stat meloxicam 15 mg tablet Take 1 tablet every day by oral route as needed. 04/07/2023 active Trulicity 1.5 mg/0.5 mL subcutaneous pen injector ADMINISTER 1.5 MG UNDER THE SKIN 1 TIME A WEEK active diclofenac 1 % topical gel APPLY 1 GRAM TOPICALLY TO THE AFFECTED AREA THREE TIMES DAILY FOR 14 DAYS active FreeStyle Yann 2 Sensor kit APPLY TOPICALLY EVERY 14 DAYS active glipizide ER 5 mg tablet, extended release 24 hr TAKE 1 TABLET BY MOUTH TWICE DAILY active chlorhexidine gluconate 0.12 % mouthwash RINSE WITH 15 ML BY MOUTH FOR 30 SECONDS ONCE DAILY AT NIGHT TIME BEFORE BEDTIME. DO NOT EXCEED 15 DAYS OF USE active omeprazole 20 mg capsule,delayed release TAKE 1 CAPSULE BY MOUTH DAILY active Problems Problem Status Onset Date Problem Type Date of Resoluti on Source Osteoarthritis of left knee joint active 2023-04-07 ProblemAct [facility] Arthritis of left knee active 2023-03-27 ProblemAct [facility]
== END 2024-12-03 09:00 | disposition home or self-care (01) ==
LOC: HO.HOSX 08:59
PROVIDERS: PCP Internal Medicine; Visit Provider Orthopaedic Surgery
DX: M25.562 Pain in left knee (principal); Z96.652 Presence of left artificial knee joint
CPT/HCPCS: 73562

== ENCOUNTER → 2024-12-03 09:01 | Outpatient (BNV) | payer OTHER, SELFPAY | PROVIDERS: PCP Internal Medicine; Visit Provider Radiology Diagnostic Radiology | DX: M25.562 Pain in left knee (principal); Z96.652 Presence of left artificial knee joint | CPT/HCPCS: 73562 ==

== ENCOUNTER 2024-12-03 09:36 | Outpatient (AMB) | payer OTHER, SELFPAY ==
[2024-12-03 09:41] VITALS: BMI 33.8
--- NOTE | 2024-12-03 09:41 | A.OFFVIS_ITS ---
Vital Signs 12/03/24 09:41 Height 5 ft 5 in Weight 203 lb BMI 33.8 Intake Visit Reasons: OV- L TKA w/DR 07/22/24 Intake Note: Filomena is a 69 year old female who presents with complaints of mild intermittent discomfort in her left knee after undergoing left total knee replacement surgery on 07/22/2024. She continues with her home exercise program. She does not take any medicines for discomfort. She denies any fevers or chills. Allergies No Known Allergies Allergy (Verified 12/03/24 09:41) Medication List - Last Reconciled 12/03/24 by Glenn Gaines MD acetaminophen 650 mg (2 x 325 mg) PO Q6H PRN 30 days aspirin 81 mg PO BID 42 days docusate sodium 100 mg PO BID 30 days lisinopril 10 mg PO DAILY magnesium oxide 200 mg PO DAILY metformin ER 500 mg PO BIDWM methocarbamol 500 mg PO TID 7 days [id number] (Multivitamin 50 Plus tablet) 1 tab PO DAILY omeprazole 20 mg PO DAILY@0630 pravastatin 40 mg PO DAILY semaglutide (Ozempic) 1 mg subcut QWEEK vitamin B complex 1 cap PO DAILY vitamin D3-vitamin K2 (MK4) 1,000-100 unit-mcg 1 tab PO DAILY walker Folding front wheeled walker zolpidem 5 mg PO BEDTIME PRN PFSH Medical History Arthritis GERD (gastroesophageal reflux disease) Nocturia Insomnia Subarachnoid hemorrhage Venous insufficiency of both lower extremities Cold sore Periumbilical hernia HTN (hypertension) Neuropathy Diabetes Radiculitis, cervical Hyperlipidemia PPD positive Depression Carpal tunnel syndrome Obesity Surgical History Hx of tubal ligation History of esophagogastroduodenoscopy (EGD) History of bilateral carpal tunnel release Hx of foot surgery H/O colonoscopy History of bunionectomy Social History Household Members: Spouse Housing: House Are you a primary neonatal critical care nurse to a significant other at home: No Do you presently have visiting nurse or other home services: No Patient Tobacco Use Status: Never used Tobacco service: No Physical Exam Vital Signs: BMI result Body Mass Index 33.8 Const Other: Well-nourished well-developed very friendly female awake alert and oriented x3 in no acute distress Extrem Other: Bilateral lower extremity examination shows good capillary refill, no skin lesions noted, normal sensation light touch Left knee examination shows that the surgical incision is well healed, no erythema, full active extension and flexion to 120 degrees, her patella tracks well Assessment & Plan Assessment & Plan (1) Left knee pain: Code(s): M25.562 - Pain in left knee Category: Medical Plan Ms. Fernández continues to do very well after undergoing left total knee replacement surgery on 07/22/2024. She will continue with her home exercise program. She does know to take antibiotics before any dental work. She will contact me prior to her follow-up appointment in 3 months should any questions or concerns arise. Feel free to call me at any time should questions regarding her orthopedic management arise. I spent 20 minutes in reviewing the patient's records and imaging studies, seeing the patient and documenting in the medical record. Orders: Orders XR knee LT 3V Today M25.562 - Pain in left knee Coding Level of Care Code Est Pt Level 3 (59510) Complex EM visit Add On G2211 Diagnoses Left knee pain M25.562
--- OUTSIDE RECORDS SUMMARY | 2024-12-03 10:41 | XMS_ITS | Encounter Summary ---
Author Organization [facility] Address [address] [place] [address] Care Team Providers Care Reversing Mill Roller Name Role Phone Alex Marquez MD Primary Care Provider [phone] Reason for Referral * Imaging (Routine) - Closed Specialty Diagnoses / Procedures Referred By Franklin baum Referred To Contact Radiology Diagnoses Gallbladder pain Procedures US Abdomen Complete Alex Marquez MD [address] [place] [address] Phone: tel: fax: [address] Phone: tel: Referral ID Status Reason Start Date Expiration Date Visits Re quested Visits Authorized [id number] Closed 10/29/2024 10/29/2025 1 1 Reason for Visit * Imaging (Routine) - Closed Specialty Diagnoses / Procedures Referred By Franklin baum Referred To Contact Radiology Diagnoses Gallbladder pain Procedures US Abdomen Complete Alex Marquez MD [address] [place] [address] Phone: tel: fax: [address] Phone: tel: Referral ID Status Reason Start Date Expiration Date Visits Re quested Visits Authorized [id number] Closed 10/29/2024 10/29/2025 1 1 Encounter Details Date Type Department Care Team (Latest Contact Info) Description 11/08/2024 8:49 AM EST - 11/08/2024 11:59 PM EST Hospital Encounter [facility]trasound [facility] [address] [place] [address] Gallbladder pain Discharge Disposition: Home or Self [...] scanning reader (FREESTYLE TALIA 2 READER [facility]) 1 Device by Does not apply route continuous. 11/15/2022 flash glucose sensor (FREESTYLE TALIA 2 [facility]) APPLY ONE SENSOR EVERY 14 DAYS 07/22/2024 [...] 1:00 PM EDT Office Visit Endocrinology - [place] [address] [place] [address] Amna Cuevas PA [address] [place] [address] documented as of this encounter Procedures Procedure [...] Signed Date: 11/08/2024 10:13 ET Workstation ID: [id number] Transcribed By: Self Edit Transcribed Date: 11/08/2024 [...] Signed Date: 11/08/2024 10:13 ET Workstation ID: [id number] Transcribed By: Self Edit Transcribed Date: 11/08/2024 10:10 ET us Alex Marquez MD [facility] [place] Final Result documented in this encounter Visit Diagnoses Diagnosis Gallbladder pain Unspecified disorder of gallbladder documented in this encounter Care Teams Reversing Mill Roller Relationship Specialty Start Date End Date Alex Marquez MD [address] [place] [address] PCP - General Internal Medicine 10/17/24 documented as of this encounter
--- OUTSIDE RECORDS SUMMARY | 2024-12-03 10:42 | XMS_ITS | Clinical Summary ---
Author Organization [place] [id number] Nicole [facility] Address [address] [place], [place] [address], [place] Phone Care Team Providers Care Toggle Press Operator Name Role Phone Alex Marquez MD Primary Care Provider [phone] Allergies No known active allergies Medications blood [...] Ultrasound - [facility] [address] [place] [phone] Gallbladder pain Discharge Disposition: Home or Self Care 10/29/2024 3:30 PM EST Office Visit [facility] - [facility] [address] [facility] [place] [phone] Alex Marquez MD Adult general medical examination (Primary Dx); Immunization due; Gallbladder pain; Type 2 diabetes mellitus with neurological manifestations, controlled ([facility]); Screening for thyroid disorder; Skin lesion 10/25/2024 4:40 PM EST Office Visit Endocrinology - [place] [address] [place], [place] [phone] Amna Cuevas PA Type 2 diabetes mellitus with neurological manifestations, controlled (CMS/HCC) (Primary Dx); Hyperlipidemia, unspecified hyperlipidemia type; Obesity (BMI 30-39.9) 10/25/2024 2:14 PM EST - 10/25/2024 11:59 PM EST Hospital Encounter Radiology Department - [address] [phone] Encounter for screening mammogram for breast cancer Discharge Disposition: Home or Self Care 09/26/2024 [facility] [address] [facility] [place] [address] Alex Marquez MD Rib Injury [...] Date Site/Laterality Comments OTHER SURGICAL HISTORY PROCEDURE: NM LIG/TRNSXJ FLP TUBE ABDL/VAG APPR UNI/BI COLONOSCOPY 04/09/2008 PROCEDURE: HISTORICAL COLONOSCOPY; COMMENT: normal; repeat in ten years CARPAL TUNNEL RELEASE 10/2011 PROCEDURE: NM NEUROPLASTY &/TRANSPOS MEDIAN NRV CARPAL TUNNE; COMMENT: both wrists; OTHER SURGICAL HISTORY 05/12/2016 PROCEDURE: NM CORRJ HLX VLGS BNCTY SESMDC DSTL METAR OSTEOT; COMMENT: left foot OTHER SURGICAL HISTORY - PROCEDURE: NM CORRECTION HAMMERTOE; COMMENT: left foot BUNIONECTOMY 02/09/2017 Right PROCEDURE: BUNION SURGERY, SIMPLE REMOVAL; COMMENT: yasmany suly bunionectomy UPPER GASTROINTESTINAL ENDOSCOPY 11/22/2019 PROCEDURE: NM UPPER GI ENDOSCOPY PERFORMED; COMMENT: Normal endoscopic findings COLONOSCOPY 11/22/2019 PROCEDURE: HISTORICAL COLONOSCOPY; COMMENT: Normal. Medical History Medical History Date Comments Depressive disorder, not els ewhere classified DX:Depressive disorder, not elsewhere classified Headache(784.0) DX:Headache(784. 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 Type II or unspecified type diabetes mellitus with neurological manifestations, not stated as uncontrolled(250.60) ([facility]/HCC) 04/22/2015 DX:Type II or unspecifi ed type diabetes mellitus with neurological manifestations, not stated as uncontrolled(250.60) ([facility]) Osteoarthritis DX:Osteoarthriti s Essential hypertension 07/26/2016 Family [...] 1:00 PM EDT Office Visit Endocrinology - [place] [address] [place] [phone] Amna Cuevas PA [address] [place] [address] Health Maintenance Due Date Last Done Comments [...] Signed Date: 11/08/2024 10:13 ET Workstation ID: [id number] Transcribed By: Self Edit Transcribed Date: 11/08/2024 [...] Signed Date: 11/08/2024 10:13 ET Workstation ID: [id number] Transcribed By: Self Edit Transcribed Date: 11/08/2024 10:10 ET us Alex Marquez MD [facility] Final Result * Lipid panel with reflex to direct LDL (10/29/2024 3:59 PM EST) Cholesterol 176 0 - 200 mg/dL LAB CHEMISTRY METHOD 10/29/2024 6:[address] [facility] Triglycerides 128 0 - 150 mg/dL LAB CHEMISTRY METHOD 10/29/2024 6:[address] [facility] HDL 77 >=40 mg/dL LAB CHEMISTRY METHOD 10/29/2024 6:28 PM [facility] LDL Calculated 73 0 - 100 mg/dL LAB CHEMISTRY METHOD 10/29/2024 6:28 PM [facility] VLDL Cholesterol Mika 25.6 mg/dL LAB CHEMISTRY METHOD 10/29/2024 6:28 PM [facility] Non HDL Chol. (LDL+VLDL) 99 <145 mg/dL LAB CHEMISTRY METHOD 10/29/2024 6:28 PM [facility] Chol/HDL Ratio 2.3 0.0 - 4.4 LAB CHEMISTRY METHOD 10/29/2024 6:28 PM [facility] Blood Venous blood specimen / Unknown Venipuncture / Unknown 10/29/2024 3:59 PM EST 10/29/2024 3:59 PM EST Alex Marquez MD LAB BLOOD ORDERABLES Final Res ult [facility] [address] [place] [address], * Complete blood count (10/29/2024 3:59 PM EST) WBC 5.8 4.8 - 10.8 K/mcL LAB HEMETOLOGY METHOD 10/29/2024 6:19 PM [facility] RBC 4.80 3.80 - 4.80 M/mcL LAB HEMETOLOGY METHOD 10/29/2024 6:19 PM [facility] Hemoglobin 14.0 11.5 - 16.0 g/dL LAB HEMETOLOGY METHOD 10/29/2024 6:19 PM [facility] Hematocrit 43.8 35.0 - 47.0 % LAB HEMETOLOGY METHOD 10/29/2024 6:19 PM [facility] MCV 91.3 79.0 - 98.0 FL LAB HEMETOLOGY METHOD 10/29/2024 6:[address] [facility] MCH 29.2 27.0 - 32.0 pcg LAB HEMETOLOGY METHOD 10/29/2024 6:[address] [facility] MCHC 32.0 32.0 - 37.0 g/dL LAB HEMETOLOGY METHOD 10/29/2024 6:[address] [facility] RDW 13.3 11.0 - 15.0 % LAB HEMETOLOGY METHOD 10/29/2024 6:19 PM [facility] Platelets 214 130 - 400 K/mcL LAB HEMETOLOGY METHOD 10/29/2024 6:[address] [facility] MPV 10.4 7.0 - 11.0 FL LAB HEMETOLOGY METHOD 10/29/2024 6:[address] [facility] NRBC 0.0 <1.0 % LAB HEMETOLOGY METHOD 10/29/2024 6:19 PM [facility] NRBC Absolute 0.00 <0.10 K/mcL LAB HEMETOLOGY METHOD 10/29/2024 6:[address] [facility] Blood Venous blood specimen / Unknown Venipuncture / Unknown 10/29/2024 3:59 PM EST 10/29/2024 3:59 PM EST us Alex Marquez MD LAB BLOOD ORDERABLES Final Res ult [facility] [address] [place] [address], * Alanine aminotransferase (10/29/2024 3:59 PM EST) ALT (SGPT) 29 10 - 60 unit/L LAB CHEMISTRY METHOD 10/29/2024 6:[address] [facility] Blood Venous blood specimen / Unknown Venipuncture / Unknown 10/29/2024 3:59 PM EST 10/29/2024 3:59 PM EST us Alex Marquez MD LAB BLOOD ORDERABLES Final Res ult Performing Organization Address [facility]/ZIP Co de Phone Number [facility] [address] [place] [address], [place] [phone] * Aspartate aminotransferase (10/29/2024 3:59 PM EST) AST (SGOT) 14 10 - 42 unit/L LAB CHEMISTRY METHOD 10/29/2024 6:[address] [facility] Blood Venous blood specimen / Unknown Venipuncture / Unknown 10/29/2024 3:59 PM EST 10/29/2024 3:59 PM EST us Alex Marquez MD LAB BLOOD ORDERABLES Final Res ult Performing Organization Address [facility]/ZIP Co de Phone Number [facility] [address] [place] [address], [place] [phone] * Thyroid stimulating hormone (10/29/2024 3:59 PM EST) [facility] TSH 1.12 0.40 - 4.00 mcIU/mL LAB CHEMISTRY METHOD 10/29/2024 6:[address] [facility] Blood Venous blood specimen / Unknown Venipuncture / Unknown 10/29/2024 3:59 PM EST 10/29/2024 3:59 PM EST us Alex Marquez MD LAB BLOOD ORDERABLES Final Res ult Performing Organization Address [facility]/ZIP Co de Phone Number [facility] [address] [place] [address], [place] [phone] * Hemoglobin A1c (10/29/2024 3:59 PM EST) Only the most recent of2 resultswithin the time period is included. [facility] Hemoglobin A1C 6.4 <6.5 % LAB CHEMISTRY METHOD 10/29/2024 9:55 PM [facility] Mean Bld Glu Estim. 137 mg/dL LAB CHEMISTRY METHOD 10/29/2024 9:55 PM [facility] Blood Venous blood specimen / Unknown Venipuncture / Unknown 10/29/2024 3:59 PM EST 10/29/2024 3:59 PM EST us Amna MARTINEZ LAB BLOOD ORDERABLES Final Resul t [facility] [address] [place] [address], [place] [phone] * (ABNORMAL) Basic metabolic panel (10/29/2024 3:59 PM EST) [facility] Sodium 139 133 - 145 mmol/L LAB CHEMISTRY METHOD 10/29/2024 6:28 PM [facility] Potassium 4.0 3.5 - 5.5 mmol/L LAB CHEMISTRY METHOD 10/29/2024 6:28 PM [facility] Chloride 104 96 - 110 mmol/L LAB CHEMISTRY METHOD 10/29/2024 6:28 PM [facility] CO2 30 21 - 32 mmol/L LAB CHEMISTRY METHOD 10/29/2024 6:28 PM [facility] Anion Gap 5 3 - 11 LAB CHEMISTRY METHOD 10/29/2024 6:28 PM [facility] Glucose 104(H) 70 - 100 mg/dL LAB CHEMISTRY METHOD 10/29/2024 6:28 PM [facility] BUN 15 5 - 25 mg/dL LAB CHEMISTRY METHOD 10/29/2024 6:28 PM [facility] Creatinine 0.57 0.50 - 1.10 mg/dL LAB CHEMISTRY METHOD 10/29/2024 6:[address] [facility] eGFR 99 >=60 mL/min/1. 73m2 LAB CHEMISTRY METHOD 10/29/2024 6:[address] [facility] Comment:Calculation based on the??Chronic Kidney Disease Epidemiology Collaboration (CKD-EPI) equation refit??without adjustment for race. BUN/Creatinine Ratio 26.3 LAB CHEMISTRY METHOD 10/29/2024 6:[address] [facility] Calcium 9.1 8.5 - 10.5 mg/dL LAB CHEMISTRY METHOD 10/29/2024 6:[address] [facility] Blood Venous blood specimen / Unknown Venipuncture / Unknown 10/29/2024 3:59 PM EST 10/29/2024 3:59 PM EST us Alex Marquez MD LAB BLOOD ORDERABLES Final Res ult [facility] [address] [place] [address], [place] [phone] * MG Mammo Digital Screening w Remigio bilat (10/25/2024 2:42 PM EST) Anatomical Region Laterality Modality Breast Bilateral Mammography 10/28/2024 7:23 AM EST Impressions 10/28/2024 7:26 AM EST Benign. BI-RADS CATEGORY: 1 - NEGATIVE RECOMMENDATION: Screening bilateral mammogram is recommended in 1 year. Mammo Location: [place] [facility], [address] [place] [address], [address], . -------- FINAL REPORT -------- Dictated By: Gifty Carcamo Dictated Date: 10/28/2024 07:23 ET Assigned Physician: Gifty Carcamo Reviewed and Electronically Signed By: Gifty Carcamo Signed Date: 10/28/2024 07:26 ET Workstation ID: [id number] Transcribed By: Self Edit Transcribed Date: 10/28/2024 [...] is recommended in 1 year. Mammo Location: [place] [facility], [address] [place] [address], [facility], . -------- FINAL REPORT -------- Dictated By: Gifty Carcamo Dictated Date: 10/28/2024 07:23 ET Assigned Physician: Gifty Carcamo Reviewed and Electronically Signed By: Gifty Carcamo Signed Date: 10/28/2024 07:26 ET Workstation ID: [id number] Transcribed By: Self Edit Transcribed Date: 10/28/2024 07:23 ET us Alex Marquez MD IMG BI PROCEDURES Final Result * Microalbumin creatinine urine ratio (10/17/2024 8:47 AM EST) [facility] Creatinine, Urine 90.0 mg/dL LAB CHEMISTRY METHOD 10/17/2024 12:[address] [facility] Microalb, Ur 21.1 0.0 - 29.0 mg/L LAB CHEMISTRY METHOD 10/17/2024 12:[address] [facility] Microalb/Creat Ratio 23 <30 mg/g creat LAB CHEMISTRY METHOD 10/17/2024 12:[address] [facility] Urine Urine specimen obtained by clean catch procedure / Unknown Non-blood Collection / Unknown 10/17/2024 8:47 AM EST 10/17/2024 8:47 AM EST Amna MARTINEZ LAB URINE ORDERABLES Final Resul t [facility] [address] [place] [address], * Diabetes Foot Exam (06/26/2024) [facility] Diabetes: Annual Foot Exam Abstracted [facility] Provider HEALTH MAINTENANCE Final Result * Colonoscopy (11/22/2019) [facility] Colonoscopy Abstracted, No interpretation Anatomical Region Laterality Modality Other [facility] Provider HEALTH MAINTENANCE Final Result * Hepatitis C Screening (10/01/2013) [facility] Hepatitis C Screening Abstracted Historical Provider HEALTH MAINTENANCE Final Result from Last 3 Months or Most Recently Relevant to Health Maintenance Insurance [facility] Care Teams Toggle Press Operator Relationship Specialty Start Date End Date Alex Marquez MD [address] [place] [id number] PCP - General Internal Medicine 10/17/24
== END 2024-12-03 10:11 | disposition home or self-care (01) ==
PROVIDERS: PCP Internal Medicine; Visit Provider Orthopaedic Surgery
DX: M25.562 Pain in left knee (principal); Z96.652 Presence of left artificial knee joint
CPT/HCPCS: 99213